=== PATIENT | male | born 1960 | race Hispanic/Latino ===

== ENCOUNTER 2019-12-09 21:53 | Inpatient (IN) | payer OTHER, SELFPAY ==
[~2019-12-09] VITALS: Ht 172.7 cm; Wt 77.1 kg
[2019-12-09] MEDS ORDERED: ONDANSETRON HCL 4 MG/2 ML VIAL ONE (22:09)
[2019-12-09 22:47] LABS: BASOPHILS % (AUTO) 0.3 % (0.0-5.0); HEMATOCRIT 49.2 % (42-54); LYMPHOCYTES % (AUTO) 11.3 % (21.0-51.0); MEAN CORPUSCULAR HEMOGLOBIN 30.3 pg (27.0-33.0); MEAN CORPUSCULAR HGB CONC 32.7 g/dL (32.0-36.0); MEAN CORPUSCULAR VOLUME 92.7 fL (79-99); MONOCYTES % (AUTO) 11.2 % (3.0-13.0); NEUTROPHILS % (AUTO) 76.2 % (40.0-77.0); PLATELET COUNT (AUTO) 313 K/uL (130-400); RED BLOOD CELL COUNT(AUTO) 5.31 MIL/uL (4.50-6.20); RED CELL DISTRIBUTION WIDTH 13.1 % (11.0-15.5); WHITE BLOOD COUNT (AUTO) 6.1 K/uL (4.8-10.8)
[2019-12-09 23:02] LABS: ALBUMIN 3.2 g/dL (3.5-5.0); BILIRUBIN,TOTAL 0.5 mg/dL (0.2-1.0); CREATININE 1.9 mg/dL (0.5-1.5); POTASSIUM 5.3 mmol/L (3.5-5.1); TOTAL PROTEIN, SERUM 8.4 g/dL (6.0-8.3)
[2019-12-10 00:05] LABS: ABG BASE EXCESS -19.8 mmol/L (-2.0-3.0); ABG HCO3 6.4 mmol/L (21.0-28.0); ABG PCO2 18 mmHg (35-48)
[2019-12-10] MEDS ORDERED: SODIUM CHLORIDE 0.9% 100 ML IV ONE (00:44)
[2019-12-10] MEDS ORDERED: INSULIN HUMULIN R 100 UNIT/ML 3ML ONE (00:44)
[2019-12-10 01:10] LABS: APPEARANCE,URINE Clear (CLEAR); BILIRUBIN,URINE Negative (NEGATIVE); COLOR,URINE Yellow (YELLOW); GLUCOSE, URINE (UA) >=1000 mg/dL (NEGATIVE); KETONES,URINE >=160 mg/dL (NEGATIVE); LEUKOCYTE ESTERASE ,URINE Negative (NEGATIVE); NITRATE,URINE Negative (NEGATIVE); OCCULT BLOOD,URINE Trace (NEGATIVE); PROTEIN,URINE POS 1+ mg/dL (NEGATIVE); UROBILINOGEN,URINE 0.2 mg/dL (0.2-1.0)
[2019-12-10 01:24] LABS: BACTERIA,URINE None Seen /HPF (None Seen); RBC,URINE None Seen /HPF (0-1); SQUAMOUS EPITHELIAL CELL,UR Rare /HPF (0-2); WBC,URINE None Seen /HPF (0-1); YEAST,URINE BUDDING None Seen /HPF (None Seen)
[2019-12-10] MEDS ORDERED: ONDANSETRON HCL 4 MG/2 ML VIAL IV PRN (02:00)
[2019-12-10] MEDS: SODIUM CHLORIDE 0.9% 1000ML 1,000 ML IV SCH (02:00)
[2019-12-10] MEDS ORDERED: DEXTROSE 5 %-0.45 % NACL 1,000 ML IV PRN (02:00)
[2019-12-10] MEDS ORDERED: SODIUM CHLORIDE 0.9% 1000ML 1,000 ML IV SCH (02:00)
[2019-12-10] MEDS ORDERED: HYDRALAZINE HCL 20 MG/ML VIAL IV PRN (02:00)
[2019-12-10] MEDS: DOXYCYCLINE 100MG+NS 250ML IV SCH (02:00)
[2019-12-10] MEDS ORDERED: ERGOCALCIFEROL (VITAMIN D2) 50,000 UNIT CAPSULE PO ONE (02:00)
[2019-12-10] MEDS ORDERED: POTASSIUM CHLORIDE 10MEQ/100ML 100 ML IV PRN (02:00)
[2019-12-10] MEDS ORDERED: INSULIN REGULAR, HUMAN 3ML 100 UNIT in SODIUM CHLORIDE 0.9% 99 ML IV PRN ×2 (02:00)
[2019-12-10] MEDS ORDERED: ALBUTEROL INHALER 90MCG/INH IH PRN (02:00)
[2019-12-10] MEDS ORDERED: ACETAMINOPHEN 325 MG TAB PO PRN (02:00)
[2019-12-10] MEDS ORDERED: SODIUM BICARB 50MEQ 50ML VIAL ONE (02:03)
[2019-12-10 03:21] LABS: ABG BASE EXCESS -15.1 mmol/L (-2.0-3.0); ABG HCO3 10.5 mmol/L (21.0-28.0); ABG OXYGEN SATURATION 95.6 % (95.0-99.0); ABG PCO2 25 mmHg (35-48)
[2019-12-10] MEDS ORDERED: DEXTROSE 5 %-0.45 % NACL 1,000 ML IV ONE ×2 (06:39→15:54)
[2019-12-10] MEDS ORDERED: ENOXAPARIN SODIUM 40 MG/0.4 ML SYRINGE SQ SCH ×2 (09:00)
[2019-12-10] MEDS: ZINC SULFATE 220 CAPSULE PO SCH (09:00)
[2019-12-10] MEDS: ASCORBIC ACID 500 MG TAB PO SCH (09:00)
[2019-12-10] MEDS ORDERED: DOXYCYCLINE 100MG+NS 250ML 250 ML IV ONE ×2 (11:21→21:53)
[2019-12-10] MEDS ORDERED: METHYLPREDNISOLONE SOD SUCC 40MG/ML 1ML ONE ×2 (11:21→19:40)
[2019-12-10] MEDS ORDERED: ASCORBIC ACID 500 MG TAB ONE (11:21)
[2019-12-10] MEDS ORDERED: ZINC SULFATE 220 CAPSULE ONE ×2 (11:22→11:50)
[2019-12-10] MEDS ORDERED: FAMOTIDINE/PF 20 MG/2 ML VIAL IV ONE ×2 (11:22→21:54)
[2019-12-10] MEDS ORDERED: ENOXAPARIN SODIUM 40 MG/0.4 ML SYRINGE SQ ONE (11:22)
[2019-12-10] MEDS ORDERED: ERGOCALCIFEROL (VITAMIN D2) 50,000 UNIT CAPSULE PO SCH (12:15)
[2019-12-10 16:01] LABS: ALBUMIN 2.4 g/dL (3.5-5.0); BILIRUBIN,TOTAL 0.3 mg/dL (0.2-1.0); CREATININE 1.2 mg/dL (0.5-1.5); POTASSIUM 3.5 mmol/L (3.5-5.1); TOTAL PROTEIN, SERUM 6.4 g/dL (6.0-8.3)
[2019-12-10 19:12] LABS: CRP QUANTITATIVE 50.3 mg/L (0.00-9.0)
[2019-12-10 21:01] LABS: BASOPHILS % (AUTO) 0.1 % (0.0-5.0); HEMATOCRIT 42.2 % (42-54); LYMPHOCYTES % (AUTO) 9.6 % (21.0-51.0); MEAN CORPUSCULAR HEMOGLOBIN 30.7 pg (27.0-33.0); MEAN CORPUSCULAR HGB CONC 34.6 g/dL (32.0-36.0); MEAN CORPUSCULAR VOLUME 88.8 fL (79-99); MONOCYTES % (AUTO) 5.5 % (3.0-13.0); NEUTROPHILS % (AUTO) 84.1 % (40.0-77.0); PLATELET COUNT (AUTO) 271 K/uL (130-400); RED BLOOD CELL COUNT(AUTO) 4.75 MIL/uL (4.50-6.20); RED CELL DISTRIBUTION WIDTH 13.1 % (11.0-15.5); WHITE BLOOD COUNT (AUTO) 6.9 K/uL (4.8-10.8)
[2019-12-11] MEDS ORDERED: METHYLPREDNISOLONE SOD SUCC 125MG/2ML VIAL ONE (02:52)
[2019-12-11 04:41] LABS: HEMOGLOBIN A1C 11.8 % (4.0-6.0)
[2019-12-11 04:46] LABS: CRP QUANTITATIVE 39.5 mg/L (0.00-9.0)
[2019-12-11] MEDS ORDERED: DOXYCYCLINE 100MG+NS 250ML 250 ML IV ONE (10:11)
[2019-12-11] MEDS ORDERED: ASCORBIC ACID 500 MG TAB ONE (10:12)
[2019-12-11] MEDS ORDERED: METHYLPREDNISOLONE SOD SUCC 40MG/ML 1ML ONE ×4 (10:12→20:46)
[2019-12-11] MEDS ORDERED: ZINC SULFATE 220 CAPSULE ONE (10:13)
[2019-12-11] MEDS ORDERED: FAMOTIDINE/PF 20 MG/2 ML VIAL IV ONE ×2 (10:13→20:46)
[2019-12-11] MEDS ORDERED: ENOXAPARIN SODIUM 40 MG/0.4 ML SYRINGE SQ ONE (10:13)
[2019-12-11 11:00] LABS: POTASSIUM 3.2 mmol/L (3.5-5.1)
[2019-12-11] MEDS ORDERED: POTASSIUM CHLORIDE 10MEQ/100ML 100 ML IV ONE ×3 (13:29→21:05)
[2019-12-11] MEDS ORDERED: ONDANSETRON HCL 4 MG/2 ML VIAL ONE (13:30)
--- NOTE | 2019-12-11 15:09 | NUR ---
PATIENT RESPONDED TO TEXT REQUEST FOR CALL BACK FOR DC PLANNING' SPOKE TO PATIENT ON THE PHONE, STATES LIVES ALONE, USED TO GO TO [facility] BUT 'THEY KICKED ME OUT' PATIENT STATES [facility] SAID HE IS 10% DISABLED, AND HE IS WORKING ON MEDICAID SECOND TO THAT. PATIENT STATES HE HAS NO DME, IS INDEPENDENT, DRIVES, LIVES ALONE, AND IS AT THIS TIME UNINSURED. 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 WILL NEED COMMUNITY RESOURCE PACKET Addendum: 12/11/19 at 1515 by ANGELIA WATSON RN Amended: Links added.
[2019-12-11 20:03] LABS: CREATININE 0.9 mg/dL (0.5-1.5)
[2019-12-11 20:12] LABS: POTASSIUM 2.9 mmol/L (3.5-5.1)
[2019-12-12] MEDS ORDERED: DOXYCYCLINE HYCLATE 100 MG TABLET PO ONE ×3 (02:12→17:26)
[2019-12-12 04:23] LABS: CRP QUANTITATIVE 20.2 mg/L (0.00-9.0)
[2019-12-12] MEDS ORDERED: METHYLPREDNISOLONE SOD SUCC 40MG/ML 1ML ONE ×2 (04:49→19:43)
[2019-12-12] MEDS ORDERED: INSULIN LISPRO 100 UNIT/ML 3ML SQ SCH (07:30)
[2019-12-12] MEDS: ASCORBIC ACID 500 MG TAB PO SCH (09:00)
[2019-12-12] MEDS: ZINC SULFATE 220 CAPSULE PO SCH (09:00)
[2019-12-12] MEDS ORDERED: ASCORBIC ACID 500 MG TAB ONE (10:14)
[2019-12-12] MEDS ORDERED: METHYLPREDNISOLONE SOD SUCC 125MG/2ML VIAL ONE (10:15)
[2019-12-12] MEDS ORDERED: ENOXAPARIN SODIUM 40 MG/0.4 ML SYRINGE SQ ONE ×2 (10:15→21:55)
[2019-12-12] MEDS ORDERED: ZINC SULFATE 220 CAPSULE ONE (10:15)
[2019-12-12] MEDS ORDERED: FAMOTIDINE/PF 20 MG/2 ML VIAL IV ONE ×2 (10:15→19:44)
[2019-12-12 10:18] LABS: CREATININE 0.8 mg/dL (0.5-1.5); POTASSIUM 3.5 mmol/L (3.5-5.1)
[2019-12-12] MEDS ORDERED: LIDOCAINE HCL-MPF 1% 2ML VIAL IV PRN (10:30)
[2019-12-12 10:40] LABS: ABG BASE EXCESS -7.4 mmol/L (-2.0-3.0); ABG HCO3 15.2 mmol/L (21.0-28.0); ABG PCO2 25 mmHg (35-48)
[2019-12-12] MEDS: DOXYCYCLINE 100MG+NS 250ML IV SCH (14:00)
[2019-12-12] MEDS: INSULIN LISPRO 100 UNIT/ML 3ML SQ SCH (18:24)
[2019-12-12] MEDS: SODIUM CHLORIDE 0.9% 1000ML 1,000 ML IV SCH (19:00)
[2019-12-12] MEDS: METHYLPREDNISOLONE SOD SUCC 40MG/ML 1ML IVP SCH (20:00)
[2019-12-12] MEDS: FAMOTIDINE/PF 20 MG/2 ML VIAL IV SCH (20:00)
[2019-12-12] MEDS: HUMALOG PO SS2 SQ SCH (21:00)
[2019-12-12] MEDS: INSULIN GLARGINE 100 UNITS/ML 10 ML VIAL SQ SCH (21:00)
[2019-12-12] MEDS: ENOXAPARIN SODIUM 40 MG/0.4 ML SYRINGE SQ SCH (21:00)
[2019-12-12] MEDS ORDERED: INSULIN GLARGINE 100 UNITS/ML 10 ML VIAL SQ SCH (21:00)
--- NOTE | 2019-12-13 00:01 | NUR ---
ADMISSION PT ADMITTED TO ROOM 228 A& 0X3 AMBULATED FROM STRETCHER TO BED WITH SBA. ORIENTED TO ROOM AND CALL DORANTES. 02 SAT 87-88% ON 3 L 02 VIA NC INCREASE TO 4 L NC NO CHANGE IN 02 SAT, INCREASE TO 5 L 02 SAT 92%. PT INSTRUCTED ON PRONING POSITION AND ENCOURAGE TO START PRONING AND VERBALIZED UNDERSTANDING. CALL DORANTES IN REACH.
[2019-12-13 00:05] VITALS: BP 116/71
[2019-12-13] MEDS ORDERED: METFORMIN PO (00:09)
[2019-12-13] MEDS ORDERED: GLIPIZIDE PO (00:10)
[2019-12-13] MEDS: DOXYCYCLINE 100MG+NS 250ML IV SCH (02:40)
[2019-12-13 03:51] VITALS: BP 95/53
[2019-12-13] MEDS: SODIUM CHLORIDE 0.9% 1000ML 1,000 ML IV SCH ×5 (05:30→21:02)
[2019-12-13 05:35] LABS: BASOPHILS % (AUTO) 0.1 % (0.0-5.0); HEMATOCRIT 37.9 % (42-54); LYMPHOCYTES % (AUTO) 4.4 % (21.0-51.0); MEAN CORPUSCULAR HEMOGLOBIN 30.2 pg (27.0-33.0); MEAN CORPUSCULAR HGB CONC 34.6 g/dL (32.0-36.0); MEAN CORPUSCULAR VOLUME 87.3 fL (79-99); MONOCYTES % (AUTO) 8.8 % (3.0-13.0); NEUTROPHILS % (AUTO) 86.2 % (40.0-77.0); PLATELET COUNT (AUTO) 247 K/uL (130-400); RED BLOOD CELL COUNT(AUTO) 4.34 MIL/uL (4.50-6.20); WHITE BLOOD COUNT (AUTO) 11.9 K/uL (4.8-10.8)
[2019-12-13 05:42] LABS: ALBUMIN 2.1 g/dL (3.5-5.0); BILIRUBIN,TOTAL 0.5 mg/dL (0.2-1.0); CREATININE 0.8 mg/dL (0.5-1.5); CRP QUANTITATIVE 28.9 mg/L (0.00-9.0); POTASSIUM 3.3 mmol/L (3.5-5.1); TOTAL PROTEIN, SERUM 5.6 g/dL (6.0-8.3)
[2019-12-13] MEDS: HUMALOG PO SS2 SQ SCH (06:02)
[2019-12-13] MEDS: POTASSIUM CHLORIDE 20MEQ/100ML 100 ML IV PRN ×2 (06:35→09:13)
[2019-12-13 07:00] VITALS: BP 107/67
[2019-12-13] MEDS: INSULIN LISPRO 100 UNIT/ML 3ML SQ SCH ×6 (08:00→20:55)
[2019-12-13] MEDS: METHYLPREDNISOLONE SOD SUCC 40MG/ML 1ML IVP SCH ×3 (08:11→21:04)
[2019-12-13] MEDS: FAMOTIDINE/PF 20 MG/2 ML VIAL IV SCH ×2 (08:11→21:04)
[2019-12-13] MEDS: ASCORBIC ACID 500 MG TAB PO SCH (08:11)
[2019-12-13] MEDS: ZINC SULFATE 220 CAPSULE PO SCH (08:11)
[2019-12-13] MEDS: ENOXAPARIN SODIUM 40 MG/0.4 ML SYRINGE SQ SCH ×2 (08:12→21:03)
[2019-12-13] MEDS: INSULIN GLARGINE 100 UNITS/ML 10 ML VIAL SQ SCH ×2 (08:14→20:56)
[2019-12-13 11:00] VITALS: BP 112/73
[2019-12-13] MEDS: DOXYCYCLINE 100MG+NS 250ML 250 ML IV SCH (14:00)
[2019-12-13 15:00] VITALS: BP 113/76
--- NOTE | 2019-12-13 19:55 | NUR ---
K+ CALL TO ONCALL PROVIDER CRIME SCENE ANALYST ISAIAS TO CLARIFY K+ ORDERS CURRENT K= 2.8 AFTER PT RECEIVED 40 MEQ IV TODAY, ORDER RECEIVED TO DC CURRENT K+ REPLACEMENTS AND INITIATE K+ HALF DOSE PROTOCOL AND MAGNESIUM PROTOCOL
[2019-12-13] MEDS ORDERED: MAGNESIUM 2GM PREMIX 50ML 50 ML IV PRN (20:00)
[2019-12-13] MEDS ORDERED: POTASSIUM CHLORIDE 10MEQ/100ML 100 ML IV PRN (20:00)
[2019-12-13] MEDS ORDERED: LIDOCAINE HCL-MPF 1% 2ML VIAL IV PRN (20:00)
[2019-12-13 20:31] VITALS: BP 109/75
[2019-12-13] MEDS: POTASSIUM CHLORIDE 10% ELIXIR 20 MEQ/15 ML UDCUP PO PRN ×2 (21:04→23:18)
[2019-12-14] VITALS (7 sets, daily range): BP systolic 107–118; BP diastolic 65–78
[2019-12-14] MEDS: SODIUM CHLORIDE 0.9% 1000ML 1,000 ML IV SCH ×2 (00:03→05:46)
[2019-12-14] MEDS: DOXYCYCLINE 100MG+NS 250ML 250 ML IV SCH ×2 (01:14→14:27)
[2019-12-14] MEDS: POTASSIUM CHLORIDE 10% ELIXIR 20 MEQ/15 ML UDCUP PO PRN ×2 (01:15→03:10)
[2019-12-14 05:34] LABS: BASOPHILS % (AUTO) 0.1 % (0.0-5.0); HEMATOCRIT 39.9 % (42-54); LYMPHOCYTES % (AUTO) 4.4 % (21.0-51.0); MEAN CORPUSCULAR HEMOGLOBIN 30.9 pg (27.0-33.0); MEAN CORPUSCULAR HGB CONC 35.3 g/dL (32.0-36.0); MEAN CORPUSCULAR VOLUME 87.3 fL (79-99); MONOCYTES % (AUTO) 7.5 % (3.0-13.0); NEUTROPHILS % (AUTO) 87.2 % (40.0-77.0); PLATELET COUNT (AUTO) 244 K/uL (130-400); RED BLOOD CELL COUNT(AUTO) 4.57 MIL/uL (4.50-6.20); WHITE BLOOD COUNT (AUTO) 16.5 K/uL (4.8-10.8)
[2019-12-14] MEDS: INSULIN LISPRO 100 UNIT/ML 3ML SQ SCH ×8 (05:46→20:48)
[2019-12-14 05:50] LABS: ALBUMIN 2.1 g/dL (3.5-5.0); BILIRUBIN,TOTAL 0.8 mg/dL (0.2-1.0); CREATININE 0.7 mg/dL (0.5-1.5); MAGNESIUM 2.1 mg/dL (1.80-2.40); POTASSIUM 3.1 mmol/L (3.5-5.1)
--- NOTE | 2019-12-14 06:16 | NUR ---
PM SHIFT NOTE PT A & 0X3 ON 5 L NC WITH HUMIDIFICATION 02 SATS 92-93%. PT ENCOURANGED TO PRONE POSITION WHILE IN BED BUT HAS DECLINED TO DO SO TONIGHT. RECEIVED PO REPLACEMENT FOR POTASSIUM PENDING IV 10 MEQ REPLACEMENT NOT STOCKED IN [facility]OSPITAL [facility] NOTIFIED AND WILL SUPPLY.
[2019-12-14] MEDS: INSULIN GLARGINE 100 UNITS/ML 10 ML VIAL SQ SCH ×3 (08:15→20:36)
[2019-12-14] MEDS: ENOXAPARIN SODIUM 40 MG/0.4 ML SYRINGE SQ SCH ×2 (09:14→20:37)
[2019-12-14] MEDS: METHYLPREDNISOLONE SOD SUCC 40MG/ML 1ML IVP SCH ×3 (09:14→20:36)
[2019-12-14] MEDS: FAMOTIDINE/PF 20 MG/2 ML VIAL IV SCH ×2 (09:15→20:36)
[2019-12-14] MEDS: ASCORBIC ACID 500 MG TAB PO SCH (09:15)
[2019-12-14] MEDS: ZINC SULFATE 220 CAPSULE PO SCH (10:19)
[2019-12-14] MEDS: POTASSIUM CHLORIDE 20 MEQ ERTAB PO PRN ×2 (13:03→14:26)
--- NOTE | 2019-12-14 14:23 | NUR ---
@1315, Family updated on patient status.
[2019-12-15] MEDS: DOXYCYCLINE 100MG+NS 250ML 250 ML IV SCH ×2 (02:35→13:47)
[2019-12-15 04:29] VITALS: BP 106/64
--- NOTE | 2019-12-15 05:12 | NUR ---
HR NOTIFIED BY POLY OPERATOR HR IN 40S, PT ASLEEP EASILY AWAKENED REPORTS HE WAS IN DEEP SLEEP DENIES ANY SYMPTOMS CHEST PAIN, SOB, DIZZINESS. HR BACK IN 50S ONCE AWAKENED.
[2019-12-15 05:22] LABS: BASOPHILS % (AUTO) 0.1 % (0.0-5.0); HEMATOCRIT 36.8 % (42-54); LYMPHOCYTES % (AUTO) 6.8 % (21.0-51.0); MEAN CORPUSCULAR HEMOGLOBIN 30.2 pg (27.0-33.0); MEAN CORPUSCULAR HGB CONC 34.5 g/dL (32.0-36.0); MEAN CORPUSCULAR VOLUME 87.6 fL (79-99); MONOCYTES % (AUTO) 10.5 % (3.0-13.0); NEUTROPHILS % (AUTO) 81.6 % (40.0-77.0); PLATELET COUNT (AUTO) 260 K/uL (130-400); RED CELL DISTRIBUTION WIDTH 13.3 % (11.0-15.5); WHITE BLOOD COUNT (AUTO) 12.1 K/uL (4.8-10.8)
[2019-12-15 05:57] LABS: ALBUMIN 1.8 g/dL (3.5-5.0); BILIRUBIN,TOTAL 0.6 mg/dL (0.2-1.0); CREATININE 0.7 mg/dL (0.5-1.5); POTASSIUM 3.4 mmol/L (3.5-5.1); TOTAL PROTEIN, SERUM 5.5 g/dL (6.0-8.3)
[2019-12-15] MEDS: INSULIN LISPRO 100 UNIT/ML 3ML SQ SCH ×7 (06:02→20:08)
[2019-12-15 08:48] VITALS: BP 107/60
[2019-12-15] MEDS: ASCORBIC ACID 500 MG TAB PO SCH (09:08)
[2019-12-15] MEDS: FAMOTIDINE/PF 20 MG/2 ML VIAL IV SCH ×2 (09:08→20:00)
[2019-12-15] MEDS: ZINC SULFATE 220 CAPSULE PO SCH (09:08)
[2019-12-15] MEDS: POTASSIUM CHLORIDE 20 MEQ ERTAB PO PRN ×2 (09:09→12:16)
[2019-12-15] MEDS: INSULIN GLARGINE 100 UNITS/ML 10 ML VIAL SQ SCH ×2 (09:11→20:08)
[2019-12-15] MEDS: ENOXAPARIN SODIUM 40 MG/0.4 ML SYRINGE SQ SCH ×2 (09:12→20:01)
[2019-12-15] MEDS: METHYLPREDNISOLONE SOD SUCC 40MG/ML 1ML IVP SCH ×3 (09:54→20:00)
--- NOTE | 2019-12-15 10:12 | NUR ---
I HAVE INFORMED HAND BUTTON SPLITTER ZELDA OF PT'S NEED TO BE REGISTERED TO RECEIVED PLASMA; I HAVE ALSO CHECKED AND PT DOES HAVE A RECENT TYPE AND CROSS.
[2019-12-15 11:40] VITALS: BP 112/62
--- NOTE | 2019-12-15 12:32 | NUR ---
@1215, Family updated on patient status.
--- NOTE | 2019-12-15 14:13 | NUR ---
received form from [facility] [employer] [facility] for convalescent plasma infusion and order placed to blood bank for the plasma; will await to her back from blood bank to infuse; pt has already signed consent to receive the plasma.
[2019-12-15 16:11] VITALS: BP 118/66
--- NOTE | 2019-12-15 18:30 | NUR ---
shift summary: pt's potassium level 3.4 this am- i have given him 2 10 meq kcl tablets as coverage per potassium protocol; pt has been voiding dark yellow urine per urinal, laking prone throughout most of the day and tolerating it well; he remains on o2 15 L via non rebreather face mask with o2 sat at 95%; pt has not received his 2 units of plasma, i have spoken to blood bank recently and they stated plasma not available yet for him but they will call when it is; dr mckeon did video assisted rounding on the patient today and dr johnson and dr andrews rounded on the patient.
[2019-12-15 20:00] VITALS: BP 119/65
--- NOTE | 2019-12-15 20:00 | NUR ---
MEDS SHIFT ASSESSMENT DONE, PLEASE REFER TO CHART. PIV TO LEFT HAND INFILTRATED, DISCONTINUED WITH CATHETER INTACT. DUE MEDS ADMINISTERED, TOLERATED WELL. KEPT PT ON NON-REBREATHER MASK. INSTRUCTED TO LIE PRONE MUCH POSSIBLE, PT VERBALIZES UNDERSTANDING. WILL MONITOR PT. CALL LIGHT WITHIN REACH. Addendum: 12/15/19 at 2124 by CARYN WAYNE RN RN Amended: Links added.
--- NOTE | 2019-12-15 22:00 | NUR ---
ROUNDS PT RESTING WELL, ASLEEP ON PRONE POSITION. KEPT RESTED AND COMFORTABLE. WILL MONITOR PT.
[2019-12-16] MEDS: DOXYCYCLINE 100MG+NS 250ML 250 ML IV SCH ×2 (01:37→14:15)
--- NOTE | 2019-12-16 01:51 | NUR ---
MEDS AWAKENED PT FOR DUE MEDS. NO CONCERNS VERBALIZED AT THIS TIME. IV ANTIBIOTIC HUNG. KEPT RESTED AND COMFORTABLE. WILL MONITOR PT.
[2019-12-16 04:00] VITALS: BP 123/86
[2019-12-16] MEDS: INSULIN LISPRO 100 UNIT/ML 3ML SQ SCH ×7 (06:00→21:27)
--- NOTE | 2019-12-16 06:02 | NUR ---
BLOOD SUGAR PT'S BLOOD SUGAR=71. VERBALIZES FEELING HUNGRY. PROVIDED PT WITH JUICE AND SANDWICH TO EAT. FOR MORE CARE.
[2019-12-16 06:13] LABS: HEMATOCRIT 40.7 % (42-54); MEAN CORPUSCULAR HEMOGLOBIN 30.4 pg (27.0-33.0); MEAN CORPUSCULAR HGB CONC 34.4 g/dL (32.0-36.0); MEAN CORPUSCULAR VOLUME 88.5 fL (79-99); PLATELET COUNT (AUTO) 338 K/uL (130-400); RED CELL DISTRIBUTION WIDTH 13.2 % (11.0-15.5); WHITE BLOOD COUNT (AUTO) 14.2 K/uL (4.8-10.8)
[2019-12-16 06:25] LABS: CREATININE 0.6 mg/dL (0.5-1.5); MAGNESIUM 2.1 mg/dL (1.80-2.40); POTASSIUM 3.2 mmol/L (3.5-5.1)
[2019-12-16 06:35] LABS: BAND NEUTROPHILS % (MANUAL) 3 % (0-2); LYMPHOCYTES % (MANUAL) 10 % (22-44); MAN.DIFF COMMENT-IMPRESSION MANUAL DIFFERENTIAL; MONOCYTES % (MANUAL) 10 % (2-9); PLATELET MORPHOLOGY COMMENT ADEQUATE; SEGMENTED NEUTROPHILS % 77 % (40-70)
[2019-12-16 08:30] VITALS: BP 131/77
[2019-12-16] MEDS: METHYLPREDNISOLONE SOD SUCC 40MG/ML 1ML IVP SCH ×3 (08:41→21:34)
[2019-12-16] MEDS: ENOXAPARIN SODIUM 40 MG/0.4 ML SYRINGE SQ SCH ×2 (08:41→21:35)
[2019-12-16] MEDS: FAMOTIDINE/PF 20 MG/2 ML VIAL IV SCH ×2 (08:42→21:34)
[2019-12-16] MEDS: ASCORBIC ACID 500 MG TAB PO SCH (08:42)
[2019-12-16] MEDS: ZINC SULFATE 220 CAPSULE PO SCH (08:42)
[2019-12-16] MEDS ORDERED: INSULIN GLARGINE 100 UNITS/ML 10 ML VIAL SQ SCH (09:00)
[2019-12-16] MEDS: LACTULOSE 20 GM/30 ML UDCUP PO PRN (11:49)
[2019-12-16 12:00] VITALS: BP 106/62
[2019-12-16] MEDS: POTASSIUM CHLORIDE 20 MEQ ERTAB PO PRN ×3 (12:00→16:32)
[2019-12-16] MEDS: INSULIN GLARGINE 100 UNITS/ML 10 ML VIAL SQ SCH ×2 (12:20→21:26)
--- NOTE | 2019-12-16 13:32 | NUR ---
RDSCREEN - LOS X 7 Pt positive for COVID-19 infection. Pt with 75gm CC Diet order in place with improved appetite, Intake at 100%, No report of GI distress. WBC 14.2, Vitamin C, Zinc supplementation in place. Alb 1.8. Pending plasma Tx as per EMR. Recommend 500mg Vit C BID Recommend 60mL ProMod BID RD to continue to monitor. Please notify as additional nutrition concerns arise. Thank you.
--- NOTE | 2019-12-16 13:32 | NUR ---
I CALLED BLOOD BANK IN [facility] TO THE ORDERED PLASMA AND WAS TOLD IT MIGHT BE READY BY THIS AFTERNOON. THEY WILL CALL WHEN AVAILABLE.
[2019-12-16 15:30] VITALS: BP 118/68
--- NOTE | 2019-12-16 17:42 | NUR ---
SHIFT SUMMARY: PT WITH NOT ABLE TO WEAN DOWN FROM OXYGEN, HE IS STILL ON NON REBREATHER MASK AT 15L, WHEN MASK REMOVED FOR EATING OR REPOSITIONING PT QUICKLY DROPS INTO THE 70'S O2 SAT; I SPOKE TO RESPIRATORY AND THERE CLOSELY MONITORING HIM; THEY HAVE PLACED A CONTINUOUS PULSE OX ON THE PATIENT TO ASSIST IN MONITORING HIS LEVELS; PT HAD A LOW POTASSIUM OF 3.2 TODAY, 1 HAVE GIVEN HIM A TOTAL OF 30 MEQ KCL PO PER POTASSIUM PROTOCOL; DR FRIEDMAN, DR GARDNER AND DR GRIFFITHS ROUNDED ON PATIENT TODAY; DR MCLAUGHLIN DID VIDEO CONFERENCE ROUNDING; PT CONTINUES TO BE PENDING RECEIVING THE PLASMA, NO CALL FROM BLOOD BANK YET THIS AFTERNOON; I GAVE PT LACTULOSE TODAY AND HE DID HAVE A BOWEL MOVEMENT ON THE BEDSIDE COMMODE, HE DID NOT HAVE ENOUGH STRENGTH TO WALK TO BATHROOM.
[2019-12-16 19:45] VITALS: BP 105/65
[2019-12-16] MEDS ORDERED: REMDESIVIR (EUA) 520 100 MG VIAL IV ONE (20:00)
[2019-12-16] MEDS ORDERED: REMDESIVIR (EUA) 520 200 MG in SODIUM CHLORIDE 0.9% 250 ML IV ONE (20:00)
[2019-12-16 23:22] VITALS: BP 135/88
[2019-12-17] MEDS ORDERED: SODIUM CHLORIDE 0.9% 250 ML IV ONE (00:57)
[2019-12-17] MEDS: DOXYCYCLINE 100MG+NS 250ML 250 ML IV SCH (02:01)
--- NOTE | 2019-12-17 02:35 | NUR ---
Patient started on 1 of 2 units of convalescent plasma. No acute distress or adverse reaction noted. Will continue to monitor.
[2019-12-17 03:27] VITALS: BP 112/66
--- NOTE | 2019-12-17 05:10 | NUR ---
Convalescent Plasma-completed first of 2 units of plasma, v/s stable, no adverse reaction. As per lab, now only one unit of plasma will be given despite order for 2 units.
[2019-12-17 05:39] LABS: BASOPHILS % (AUTO) 0.1 % (0.0-5.0); LYMPHOCYTES % (AUTO) 5.1 % (21.0-51.0); MEAN CORPUSCULAR HEMOGLOBIN 30.7 pg (27.0-33.0); MEAN CORPUSCULAR HGB CONC 34.2 g/dL (32.0-36.0); MEAN CORPUSCULAR VOLUME 89.8 fL (79-99); NEUTROPHILS % (AUTO) 82.8 % (40.0-77.0); PLATELET COUNT (AUTO) 352 K/uL (130-400); RED BLOOD CELL COUNT(AUTO) 4.23 MIL/uL (4.50-6.20); RED CELL DISTRIBUTION WIDTH 13.1 % (11.0-15.5)
[2019-12-17 06:06] LABS: CREATININE 0.6 mg/dL (0.5-1.5); POTASSIUM 3.4 mmol/L (3.5-5.1)
[2019-12-17 06:10] LABS: MAGNESIUM 2.1 mg/dL (1.80-2.40); PHOSPHORUS 3.5 mg/dL (2.5-4.9)
[2019-12-17] MEDS: INSULIN LISPRO 100 UNIT/ML 3ML SQ SCH ×7 (06:43→21:00)
[2019-12-17] MEDS: POTASSIUM CHLORIDE 20 MEQ ERTAB PO PRN (07:04)
[2019-12-17 08:00] VITALS: BP 122/76
[2019-12-17] MEDS: FAMOTIDINE/PF 20 MG/2 ML VIAL IV SCH ×2 (09:56→20:15)
[2019-12-17] MEDS: ASCORBIC ACID 500 MG TAB PO SCH (09:57)
[2019-12-17] MEDS: ZINC SULFATE 220 CAPSULE PO SCH (09:57)
[2019-12-17] MEDS: METHYLPREDNISOLONE SOD SUCC 40MG/ML 1ML IVP SCH ×3 (09:57→20:15)
[2019-12-17] MEDS: ENOXAPARIN SODIUM 40 MG/0.4 ML SYRINGE SQ SCH ×2 (09:58→20:16)
[2019-12-17 11:00] VITALS: BP 94/57
[2019-12-17] MEDS ORDERED: COMPOUND IV REFRIGERATED 1 EACH IVSOLN MISC PRN (11:45)
[2019-12-17] MEDS: DOXYCYCLINE HYCLATE 100 MG TABLET PO SCH ×2 (12:33→20:15)
[2019-12-17 15:00] VITALS: BP 101/64
[2019-12-17] MEDS ORDERED: LIDOCAINE HCL-MPF 1% 2ML VIAL IV PRN (17:45)
[2019-12-17] MEDS ORDERED: POTASSIUM CHLORIDE 20 MEQ ERTAB PO PRN (17:45)
[2019-12-17] MEDS ORDERED: POTASSIUM CHLORIDE 10% ELIXIR 20 MEQ/15 ML UDCUP PO PRN (17:45)
[2019-12-17] MEDS ORDERED: POTASSIUM CHLORIDE 20MEQ/100ML 100 ML IV PRN (17:45)
[2019-12-17 19:05] VITALS: BP 97/64
[2019-12-17] MEDS ORDERED: REMDESIVIR (EUA) 520 100 MG VIAL IV ONE (20:00)
[2019-12-17] MEDS: REMDESIVIR (EUA) 520 100 MG in SODIUM CHLORIDE 0.9% 250 ML IV SCH (20:14)
[2019-12-17] MEDS: INSULIN GLARGINE 100 UNITS/ML 10 ML VIAL SQ ONE ×2 (21:36→21:47)
[2019-12-17] MEDS: PHARMACY COMMUNICATION MISC SCH (21:36)
[2019-12-17 23:03] VITALS: BP 111/78
[2019-12-18 03:42] VITALS: BP 120/69
[2019-12-18] MEDS: PHARMACY COMMUNICATION MISC SCH ×3 (04:33→20:46)
[2019-12-18 05:26] LABS: BASOPHILS % (AUTO) 0.2 % (0.0-5.0); HEMATOCRIT 41.6 % (42-54); LYMPHOCYTES % (AUTO) 5.1 % (21.0-51.0); MEAN CORPUSCULAR HEMOGLOBIN 30.7 pg (27.0-33.0); MEAN CORPUSCULAR HGB CONC 34.1 g/dL (32.0-36.0); MEAN CORPUSCULAR VOLUME 89.8 fL (79-99); MONOCYTES % (AUTO) 8.1 % (3.0-13.0); NEUTROPHILS % (AUTO) 85.5 % (40.0-77.0); PLATELET COUNT (AUTO) 374 K/uL (130-400); RED BLOOD CELL COUNT(AUTO) 4.63 MIL/uL (4.50-6.20); RED CELL DISTRIBUTION WIDTH 13.3 % (11.0-15.5); WHITE BLOOD COUNT (AUTO) 9.3 K/uL (4.8-10.8)
[2019-12-18] MEDS: INSULIN LISPRO 100 UNIT/ML 3ML SQ SCH ×7 (05:53→20:56)
[2019-12-18 05:57] LABS: ALBUMIN 1.8 g/dL (3.5-5.0); BILIRUBIN,DIRECT 0.1 mg/dL (0.0-0.3); BILIRUBIN,TOTAL 0.7 mg/dL (0.2-1.0); CREATININE 0.7 mg/dL (0.5-1.5); CRP QUANTITATIVE 99.2 mg/L (0.00-9.0); MAGNESIUM 2.6 mg/dL (1.80-2.40); POTASSIUM 4.1 mmol/L (3.5-5.1); TOTAL PROTEIN, SERUM 5.9 g/dL (6.0-8.3)
[2019-12-18 08:00] VITALS: BP 108/78
[2019-12-18] MEDS: FAMOTIDINE/PF 20 MG/2 ML VIAL IV SCH ×2 (10:07→20:21)
[2019-12-18] MEDS: ENOXAPARIN SODIUM 40 MG/0.4 ML SYRINGE SQ SCH ×2 (10:08→20:21)
[2019-12-18] MEDS: ZINC SULFATE 220 CAPSULE PO SCH (10:09)
[2019-12-18] MEDS: ASCORBIC ACID 500 MG TAB PO SCH (10:09)
[2019-12-18] MEDS: DOXYCYCLINE HYCLATE 100 MG TABLET PO SCH ×2 (10:09→20:20)
[2019-12-18] MEDS: METHYLPREDNISOLONE SOD SUCC 40MG/ML 1ML IVP SCH ×3 (10:11→20:20)
[2019-12-18 11:00] VITALS: BP 110/74
[2019-12-18 16:00] VITALS: BP 104/65
[2019-12-18] MEDS ORDERED: REMDESIVIR (EUA) 520 100 MG VIAL IV ONE (20:00)
[2019-12-18] MEDS: REMDESIVIR (EUA) 520 100 MG in SODIUM CHLORIDE 0.9% 250 ML IV SCH (20:18)
[2019-12-18 20:45] VITALS: BP 103/59
[2019-12-18 23:56] VITALS: BP 106/74
[2019-12-19 03:51] VITALS: BP 120/78
[2019-12-19] MEDS: PHARMACY COMMUNICATION MISC SCH ×3 (04:42→19:43)
[2019-12-19 05:53] LABS: BASOPHILS % (AUTO) 0.1 % (0.0-5.0); HEMATOCRIT 42.5 % (42-54); LYMPHOCYTES % (AUTO) 5.5 % (21.0-51.0); MEAN CORPUSCULAR HEMOGLOBIN 30.6 pg (27.0-33.0); MEAN CORPUSCULAR HGB CONC 33.9 g/dL (32.0-36.0); MEAN CORPUSCULAR VOLUME 90.4 fL (79-99); NEUTROPHILS % (AUTO) 86.4 % (40.0-77.0); PLATELET COUNT (AUTO) 358 K/uL (130-400); RED CELL DISTRIBUTION WIDTH 13.2 % (11.0-15.5); WHITE BLOOD COUNT (AUTO) 8.6 K/uL (4.8-10.8)
[2019-12-19 06:23] LABS: CREATININE 0.8 mg/dL (0.5-1.5); CRP QUANTITATIVE 134.1 mg/L (0.00-9.0); POTASSIUM 4.4 mmol/L (3.5-5.1)
[2019-12-19] MEDS: INSULIN LISPRO 100 UNIT/ML 3ML SQ SCH ×7 (06:32→20:51)
[2019-12-19 08:00] VITALS: BP 117/82
--- NOTE | 2019-12-19 08:27 | NUR ---
reported to dr. mckeon the d dimer of 1021. no orders was given.
[2019-12-19] MEDS: DOXYCYCLINE HYCLATE 100 MG TABLET PO SCH ×2 (09:20→19:29)
[2019-12-19] MEDS: ZINC SULFATE 220 CAPSULE PO SCH (09:20)
[2019-12-19] MEDS: FAMOTIDINE/PF 20 MG/2 ML VIAL IV SCH ×2 (09:20→19:29)
[2019-12-19] MEDS: METHYLPREDNISOLONE SOD SUCC 40MG/ML 1ML IVP SCH ×3 (09:20→20:52)
[2019-12-19] MEDS: ASCORBIC ACID 500 MG TAB PO SCH (09:20)
[2019-12-19] MEDS: ENOXAPARIN SODIUM 40 MG/0.4 ML SYRINGE SQ SCH ×2 (09:21→19:43)
[2019-12-19] MEDS ORDERED: INSULIN GLARGINE 100 UNITS/ML 10 ML VIAL SQ ONE (10:00)
[2019-12-19] MEDS ORDERED: INSULIN GLARGINE 100 UNITS/ML 10 ML VIAL SQ SCH (10:00)
[2019-12-19 11:00] VITALS: BP 117/82
[2019-12-19 16:00] VITALS: BP 95/66
[2019-12-19] MEDS: REMDESIVIR (EUA) 520 100 MG in SODIUM CHLORIDE 0.9% 250 ML IV SCH (19:27)
[2019-12-19] MEDS ORDERED: REMDESIVIR (EUA) 520 100 MG VIAL IV ONE (20:00)
[2019-12-19 20:49] VITALS: BP 115/68
[2019-12-20 00:41] VITALS: BP 108/71
[2019-12-20 04:23] VITALS: BP 111/75
[2019-12-20] MEDS: PHARMACY COMMUNICATION MISC SCH ×3 (04:56→21:05)
[2019-12-20] MEDS: INSULIN LISPRO 100 UNIT/ML 3ML SQ SCH ×7 (05:51→21:00)
[2019-12-20 07:03] LABS: BASOPHILS % (AUTO) 0.1 % (0.0-5.0); HEMATOCRIT 41.7 % (42-54); LYMPHOCYTES % (AUTO) 3.4 % (21.0-51.0); MEAN CORPUSCULAR HEMOGLOBIN 30.6 pg (27.0-33.0); MEAN CORPUSCULAR HGB CONC 34.1 g/dL (32.0-36.0); MEAN CORPUSCULAR VOLUME 89.9 fL (79-99); MONOCYTES % (AUTO) 7.9 % (3.0-13.0); NEUTROPHILS % (AUTO) 87.9 % (40.0-77.0); PLATELET COUNT (AUTO) 290 K/uL (130-400); RED BLOOD CELL COUNT(AUTO) 4.64 MIL/uL (4.50-6.20); RED CELL DISTRIBUTION WIDTH 13.2 % (11.0-15.5); WHITE BLOOD COUNT (AUTO) 12.5 K/uL (4.8-10.8)
[2019-12-20 07:27] LABS: CARBON DIOXIDE 29 mmol/L (21-32); CHLORIDE 103 mmol/L (101-111); CREATININE 0.8 mg/dL (0.5-1.5); GLOMERULAR FILTR. RATE CALC 106 mL/min (>60); GLUCOSE,RANDOM 177 mg/dL (70-105); LACTATE DEHYDROGENASE 539 U/L (81-234); POTASSIUM 3.9 mmol/L (3.5-5.1); SODIUM SERUM 137 mmol/L (136-145); UREA NITROGEN, BLOOD 17 mg/dL (7-18)
[2019-12-20 08:00] VITALS: BP 103/62
[2019-12-20] MEDS ORDERED: INSULIN GLARGINE 100 UNITS/ML 10 ML VIAL SQ SCH (09:00)
[2019-12-20] MEDS: METHYLPREDNISOLONE SOD SUCC 40MG/ML 1ML IVP SCH ×3 (09:27→21:10)
[2019-12-20] MEDS: DOXYCYCLINE HYCLATE 100 MG TABLET PO SCH ×2 (09:28→19:47)
[2019-12-20] MEDS: ZINC SULFATE 220 CAPSULE PO SCH (09:28)
[2019-12-20] MEDS: FAMOTIDINE/PF 20 MG/2 ML VIAL IV SCH ×2 (09:28→19:47)
[2019-12-20] MEDS: ASCORBIC ACID 500 MG TAB PO SCH (09:28)
[2019-12-20] MEDS: ENOXAPARIN SODIUM 40 MG/0.4 ML SYRINGE SQ SCH ×2 (09:31→19:48)
[2019-12-20 11:00] VITALS: BP 100/73
[2019-12-20 16:00] VITALS: BP 97/63
[2019-12-20] MEDS: REMDESIVIR (EUA) 520 100 MG in SODIUM CHLORIDE 0.9% 250 ML IV SCH (19:47)
[2019-12-20] MEDS ORDERED: REMDESIVIR (EUA) 520 100 MG VIAL IV ONE (20:00)
[2019-12-20 20:24] VITALS: BP 113/78
[2019-12-21] VITALS (7 sets, daily range): BP systolic 93–115; BP diastolic 61–80
[2019-12-21] MEDS: PHARMACY COMMUNICATION MISC SCH (04:30)
[2019-12-21 05:23] LABS: BASOPHILS % (AUTO) 0.1 % (0.0-5.0); HEMATOCRIT 43.6 % (42-54); LYMPHOCYTES % (AUTO) 2.9 % (21.0-51.0); MEAN CORPUSCULAR HEMOGLOBIN 30.6 pg (27.0-33.0); MEAN CORPUSCULAR HGB CONC 33.9 g/dL (32.0-36.0); MEAN CORPUSCULAR VOLUME 90.1 fL (79-99); NEUTROPHILS % (AUTO) 90.3 % (40.0-77.0); PLATELET COUNT (AUTO) 240 K/uL (130-400); RED BLOOD CELL COUNT(AUTO) 4.84 MIL/uL (4.50-6.20); RED CELL DISTRIBUTION WIDTH 13.2 % (11.0-15.5); WHITE BLOOD COUNT (AUTO) 13.5 K/uL (4.8-10.8)
[2019-12-21 06:02] LABS: CREATININE 0.8 mg/dL (0.5-1.5); CRP QUANTITATIVE 50.6 mg/L (0.00-9.0); POTASSIUM 4.2 mmol/L (3.5-5.1)
[2019-12-21] MEDS: INSULIN LISPRO 100 UNIT/ML 3ML SQ SCH ×7 (06:21→21:00)
[2019-12-21 06:27] LABS: B-TYPE NATRIURETIC PEPTIDE 31 pg/mL (0-100)
[2019-12-21] MEDS: FAMOTIDINE/PF 20 MG/2 ML VIAL IV SCH ×2 (08:08→21:21)
[2019-12-21] MEDS: ASCORBIC ACID 500 MG TAB PO SCH (08:08)
[2019-12-21] MEDS: ZINC SULFATE 220 CAPSULE PO SCH (08:08)
[2019-12-21] MEDS: DOXYCYCLINE HYCLATE 100 MG TABLET PO SCH ×2 (08:08→21:21)
[2019-12-21] MEDS: METHYLPREDNISOLONE SOD SUCC 40MG/ML 1ML IVP SCH ×3 (08:09→21:21)
[2019-12-21] MEDS: ENOXAPARIN SODIUM 40 MG/0.4 ML SYRINGE SQ SCH ×2 (08:11→21:20)
[2019-12-21] MEDS ORDERED: INSULIN GLARGINE 100 UNITS/ML 10 ML VIAL SQ SCH (09:00)
--- NOTE | 2019-12-21 17:45 | NUR ---
RESTING IN BED IN RIGHT SIDE-LYING POSITION AFTER DINNER. O2 SAT PER CONTINUOUS PULSE OXIMETER-88%. NC AND NRB IN PLACE. CALL LIGHT WITHIN REACH. BLINDS OPEN.
[2019-12-22] VITALS (29 sets, daily range): BP systolic 70–135; BP diastolic 40–100
[2019-12-22] MEDS: METHYLPREDNISOLONE SOD SUCC 40MG/ML 1ML IVP SCH ×2 (05:25→21:17)
[2019-12-22] MEDS: INSULIN LISPRO 100 UNIT/ML 3ML SQ SCH ×2 (05:26→08:00)
--- NOTE | 2019-12-22 05:49 | NUR ---
NO ANSWERED FROM . DECORATOR INSPECTOR ACCORDING TO THE SCHEDULE BOOK DR. IVORY NOR DR. FRANCISCO PIEDRA PAGED, HE STATED TO INTUBATE PATIENT IF NEEDED. CHARGE NURSE AWARE , STATED TO DO ABG PER PROTOCCOL
[2019-12-22 05:56] LABS: BASOPHILS % (AUTO) 0.1 % (0.0-5.0); HEMATOCRIT 45.6 % (42-54); LYMPHOCYTES % (AUTO) 3.1 % (21.0-51.0); MEAN CORPUSCULAR HEMOGLOBIN 30.5 pg (27.0-33.0); MEAN CORPUSCULAR HGB CONC 33.6 g/dL (32.0-36.0); MEAN CORPUSCULAR VOLUME 90.8 fL (79-99); MONOCYTES % (AUTO) 6.1 % (3.0-13.0); PLATELET COUNT (AUTO) 207 K/uL (130-400); RED BLOOD CELL COUNT(AUTO) 5.02 MIL/uL (4.50-6.20); RED CELL DISTRIBUTION WIDTH 13.3 % (11.0-15.5); WHITE BLOOD COUNT (AUTO) 17.1 K/uL (4.8-10.8)
[2019-12-22 06:18] LABS: CREATININE 0.8 mg/dL (0.5-1.5); CRP QUANTITATIVE 41.7 mg/L (0.00-9.0); POTASSIUM 4.6 mmol/L (3.5-5.1)
--- NOTE | 2019-12-22 06:23 | NUR ---
ABG'S REPORTED TO CHARGE NURSE, NO ANSWERED . PATIENT SATING IN THE LOW 70'S , - 82% PATIENT STATES HE CANNOT BREATH PATIENT STATES HE IS SHORT OF BREATH PATIENT ASKED IF HE WERE TO NEED A VENTILATOR AND HAVE A TUBE "DOWN THIS THROAT " TO HELP HIM BREATH IF HE WOULD WANT THAT, PATIENT STATES "YES" PATIENT VERBALIZES HE WANTS TO BE A FULL CODE. PATIENT CONTINUES TO TRY TO BREATH, RT AT BED SIDE, PATIENT ALREADY ON A NON REBREATHER MASK, WITH NASAL CANULA AT 15 LITERS PER RT, WE DO NOT LONGER HAVE BIPAP NOR HIGH FLOWS PATIENT CONTINUES WIT SOB CALLED , AGAIN CARE ASST, SANIYA NO ANSWERED, CALLED DR. SINGH NO ANSWERED CALLED DR. PIEDRA HE STATED , HE WAS NOT CARE ASST AND THAT HE NEEDED TO SLEEP, TO CALL SOMEONE ELSE, HOWEVER ABG'S REPORTED TO DR. PIEDRA , HE STATED TO INTUBATE PATIENT, TO CALL ER AND TO INTUBATE PATIENT , THAT HE IS HYPOXIC CALLED ER , NO ANSWERED, CALLED HOUSE [facility] , LINE BUSY CALLED ER AGAIN, NO ANSWERED CALLED [facility] AGAIN, AYAN SUPPERVISOR MADE AWARE OF PT'S SITUATION AND ORDER TO INTUBATE GAVE ME A DIFFERENT EXTENSION, GOT THROUGH DR Lucie LUCERO AWARE OF PT'S STATUS AND ABG'S RESULTS RT AWARE
[2019-12-22 06:25] LABS: ABG HCO3 23.7 mmol/L (21.0-28.0); ABG OXYGEN SATURATION 71.1 % (95.0-99.0); ABG PCO2 33 mmHg (35-48)
--- NOTE | 2019-12-22 06:57 | NUR ---
PT INTUBATED BP 131/90 HR 135 O2 85%
--- NOTE | 2019-12-22 07:10 | NUR ---
DR. DOROTHEA HARO GOT ORDERS TO TRANSFERED PATIENT TO ICU REPEAT ABG'S AND PRONE PATIENT
[2019-12-22] MEDS ORDERED: FENTANYL CITRATE PF 0.05 MG/ML 1,000 MCG in SODIUM CHLORIDE 0.9% 100 ML IVPB SCH (08:30)
[2019-12-22] MEDS ORDERED: FENTANYL 2500MCG+NS 250ML 250 ML IV ONE (08:36)
[2019-12-22] MEDS: ENOXAPARIN SODIUM 40 MG/0.4 ML SYRINGE SQ SCH ×2 (09:00→21:18)
[2019-12-22] MEDS: MIDAZOLAM 50MG-0.9% NS 50ML 50 ML BAG IV SCH ×2 (09:06→15:01)
[2019-12-22] MEDS: FENTANYL 2500MCG+NS 250ML 250 ML IV PRN (09:06)
[2019-12-22] MEDS: ASCORBIC ACID 500 MG TAB PO SCH (10:27)
[2019-12-22] MEDS: DOXYCYCLINE HYCLATE 100 MG TABLET PO SCH ×2 (10:27→21:17)
[2019-12-22] MEDS: FAMOTIDINE/PF 20 MG/2 ML VIAL IV SCH ×2 (10:27→21:17)
[2019-12-22] MEDS: ZINC SULFATE 220 CAPSULE PO SCH (10:27)
[2019-12-22] MEDS ORDERED: LACTULOSE 20 GM/30 ML UDCUP PO PRN (11:15)
[2019-12-22] MEDS ORDERED: VANCOMYCIN PROTOCOL PER PHARMACY IV SCH (11:15)
[2019-12-22] MEDS ORDERED: METHYLPREDNISOLONE SOD SUCC 125MG/2ML VIAL IVP SCH (11:15)
[2019-12-22] MEDS ORDERED: NOREPINEPHRINE 4MG/NS 250ML 250 ML IV ONE (11:17)
[2019-12-22] MEDS ORDERED: COMPOUND IV REFRIGERATED 1 EACH IVSOLN MISC PRN (11:45)
[2019-12-22 11:54] LABS: ABG BASE EXCESS -1.5 mmol/L (-2.0-3.0); ABG HCO3 23.3 mmol/L (21.0-28.0); ABG OXYGEN SATURATION 88.6 % (95.0-99.0); ABG PCO2 40 mmHg (35-48)
[2019-12-22 12:09] LABS: BASOPHILS % (AUTO) 0.1 % (0.0-5.0); HEMATOCRIT 41.6 % (42-54); LYMPHOCYTES % (AUTO) 2.4 % (21.0-51.0); MEAN CORPUSCULAR HEMOGLOBIN 30.5 pg (27.0-33.0); MEAN CORPUSCULAR HGB CONC 33.2 g/dL (32.0-36.0); MONOCYTES % (AUTO) 4.7 % (3.0-13.0); NEUTROPHILS % (AUTO) 91.9 % (40.0-77.0); PLATELET COUNT (AUTO) 176 K/uL (130-400); RED BLOOD CELL COUNT(AUTO) 4.52 MIL/uL (4.50-6.20); RED CELL DISTRIBUTION WIDTH 13.7 % (11.0-15.5); WHITE BLOOD COUNT (AUTO) 22.3 K/uL (4.8-10.8)
[2019-12-22 12:32] LABS: CREATININE 0.8 mg/dL (0.5-1.5); POTASSIUM 4.6 mmol/L (3.5-5.1)
[2019-12-22 12:38] LABS: ALBUMIN 1.6 g/dL (3.5-5.0); BILIRUBIN,TOTAL 0.8 mg/dL (0.2-1.0); TOTAL PROTEIN, SERUM 5.3 g/dL (6.0-8.3)
[2019-12-22] MEDS ORDERED: SODIUM CHLORIDE 0.9% 500ML 500 ML IV ONE (12:43)
[2019-12-22] MEDS ORDERED: ROCURONIUM 10MG/1ML SYR 10 MG/ML ML ONE (12:47)
[2019-12-22] MEDS: MEROPENEM 1 GM VIAL IVP SCH ×2 (13:07→19:15)
[2019-12-22] MEDS: VANCOMYCIN 1.25 GM in SODIUM CHLORIDE 0.9% 250 ML IV SCH ×2 (13:11→21:00)
[2019-12-22] MEDS: INSULIN REGULAR, HUMAN 3ML 100 UNIT in SODIUM CHLORIDE 0.9% 99 ML IV SCH ×2 (13:14)
[2019-12-22] MEDS: NOREPINEPHRINE 4MG/NS 250ML 250 ML IV SCH (18:46)
[2019-12-22] MEDS ORDERED: SODIUM CHLORIDE 0.9% 1000ML 1,000 ML IV ONE (20:09)
[2019-12-22] MEDS: DOCUSATE NA 100MG/10ML UDCUP PO SCH (21:17)
[2019-12-23] VITALS (82 sets, daily range): BP systolic 73–139; BP diastolic 42–97
[2019-12-23] MEDS: MEROPENEM 1 GM VIAL IVP SCH ×3 (02:00→18:29)
[2019-12-23] MEDS: NOREPINEPHRINE 4MG/NS 250ML 250 ML IV SCH ×2 (06:29→14:32)
[2019-12-23] MEDS: FENTANYL 2500MCG+NS 250ML 250 ML IV PRN (06:30)
[2019-12-23 07:33] LABS: HEMATOCRIT 42.3 % (42-54); MEAN CORPUSCULAR HEMOGLOBIN 29.9 pg (27.0-33.0); MEAN CORPUSCULAR HGB CONC 32.4 g/dL (32.0-36.0); MEAN CORPUSCULAR VOLUME 92.4 fL (79-99); PLATELET COUNT (AUTO) 156 K/uL (130-400); RED BLOOD CELL COUNT(AUTO) 4.58 MIL/uL (4.50-6.20); RED CELL DISTRIBUTION WIDTH 13.3 % (11.0-15.5)
[2019-12-23 07:53] LABS: ALBUMIN 1.5 g/dL (3.5-5.0); BILIRUBIN,TOTAL 0.6 mg/dL (0.2-1.0); CREATININE 0.7 mg/dL (0.5-1.5); CRP QUANTITATIVE 43.7 mg/L (0.00-9.0); PHOSPHORUS 3.3 mg/dL (2.5-4.9); POTASSIUM 4.2 mmol/L (3.5-5.1); TOTAL PROTEIN, SERUM 5.4 g/dL (6.0-8.3)
[2019-12-23 08:49] LABS: BAND NEUTROPHILS % (MANUAL) 1 % (0-2); LYMPHOCYTES % (MANUAL) 1 % (22-44); MAN.DIFF COMMENT-IMPRESSION MANUAL DIFFERENTIAL; MONOCYTES % (MANUAL) 5 % (2-9); SEGMENTED NEUTROPHILS % 93 % (40-70)
[2019-12-23 08:50] LABS: PLATELET MORPHOLOGY COMMENT ADEQUATE
[2019-12-23] MEDS: ENOXAPARIN SODIUM 40 MG/0.4 ML SYRINGE SQ SCH ×2 (10:01→21:00)
[2019-12-23] MEDS: METHYLPREDNISOLONE SOD SUCC 40MG/ML 1ML IVP SCH ×2 (10:01→21:00)
[2019-12-23] MEDS: FAMOTIDINE/PF 20 MG/2 ML VIAL IV SCH ×2 (10:01→21:00)
[2019-12-23] MEDS: ZINC SULFATE 220 CAPSULE PO SCH (10:01)
[2019-12-23] MEDS: DOXYCYCLINE HYCLATE 100 MG TABLET PO SCH ×2 (10:01→21:00)
[2019-12-23] MEDS: ASCORBIC ACID 500 MG TAB PO SCH (10:01)
[2019-12-23] MEDS: DOCUSATE NA 100MG/10ML UDCUP PO SCH ×2 (10:01→21:00)
[2019-12-23] MEDS: VANCOMYCIN 1.25 GM in SODIUM CHLORIDE 0.9% 250 ML IV SCH ×2 (10:44→21:00)
--- NOTE | 2019-12-23 11:02 | NUR ---
RD FOLLOW UP Notification for Tube Feeding Recommendations received. Recommend Vital AF 1.2 initiated at 15mls/hr. Goal of 45mls/hr. Recommend Flush 100ml Q6hrs. Recommendations faxed to [facility]C, ext [phone]. RN notified. RD to continue to monitor.
[2019-12-23 22:47] LABS: APPEARANCE,URINE Cloudy (CLEAR); BILIRUBIN,URINE Negative (NEGATIVE); COLOR,URINE Yellow (YELLOW); GLUCOSE, URINE (UA) Negative (NEGATIVE); KETONES,URINE Trace mg/dL (NEGATIVE); LEUKOCYTE ESTERASE ,URINE Negative (NEGATIVE); NITRATE,URINE Negative (NEGATIVE); OCCULT BLOOD,URINE Large (NEGATIVE); PROTEIN,URINE Trace mg/dL (NEGATIVE)
[2019-12-23 23:02] LABS: BACTERIA,URINE None Seen /HPF (None Seen); MUCUS,URINE Few LPF (None Seen); SQUAMOUS EPITHELIAL CELL,UR Rare /HPF (0-2); WBC,URINE None Seen /HPF (0-1)
[2019-12-23 23:03] LABS: AMORPHOUS SEDIMENT,UR Moderate /LPF (None Seen)
[2019-12-24] VITALS (75 sets, daily range): BP systolic 80–144; BP diastolic 43–77
[2019-12-24] MEDS: MIDAZOLAM 50MG-0.9% NS 50ML 50 ML BAG IV SCH ×2 (00:53→22:15)
[2019-12-24] MEDS: NOREPINEPHRINE 4MG/NS 250ML 250 ML IV SCH ×3 (00:55→23:27)
[2019-12-24 03:53] LABS: BASOPHILS % (AUTO) 0.1 % (0.0-5.0); HEMATOCRIT 39.6 % (42-54); LYMPHOCYTES % (AUTO) 3.2 % (21.0-51.0); MEAN CORPUSCULAR HEMOGLOBIN 30.8 pg (27.0-33.0); MEAN CORPUSCULAR HGB CONC 32.3 g/dL (32.0-36.0); MEAN CORPUSCULAR VOLUME 95.2 fL (79-99); MONOCYTES % (AUTO) 4.4 % (3.0-13.0); NEUTROPHILS % (AUTO) 91.6 % (40.0-77.0); PLATELET COUNT (AUTO) 134 K/uL (130-400); RED BLOOD CELL COUNT(AUTO) 4.16 MIL/uL (4.50-6.20); RED CELL DISTRIBUTION WIDTH 13.7 % (11.0-15.5); WHITE BLOOD COUNT (AUTO) 16.4 K/uL (4.8-10.8)
[2019-12-24] MEDS: MEROPENEM 1 GM VIAL IVP SCH ×3 (04:01→18:28)
[2019-12-24 04:22] LABS: ALBUMIN 1.5 g/dL (3.5-5.0); BILIRUBIN,TOTAL 0.6 mg/dL (0.2-1.0); CREATININE 0.6 mg/dL (0.5-1.5); CRP QUANTITATIVE 22.9 mg/L (0.00-9.0); MAGNESIUM 2.6 mg/dL (1.80-2.40); PHOSPHORUS 3.2 mg/dL (2.5-4.9); POTASSIUM 4.8 mmol/L (3.5-5.1)
[2019-12-24] MEDS: DOCUSATE NA 100MG/10ML UDCUP PO SCH ×2 (08:55→21:26)
[2019-12-24] MEDS: FAMOTIDINE/PF 20 MG/2 ML VIAL IV SCH ×2 (08:55→21:26)
[2019-12-24] MEDS: METHYLPREDNISOLONE SOD SUCC 40MG/ML 1ML IVP SCH ×2 (08:55→21:25)
[2019-12-24] MEDS: ASCORBIC ACID 500 MG TAB PO SCH (08:56)
[2019-12-24] MEDS: ZINC SULFATE 220 CAPSULE PO SCH (08:56)
[2019-12-24] MEDS: DOXYCYCLINE HYCLATE 100 MG TABLET PO SCH (08:56)
[2019-12-24] MEDS: ENOXAPARIN SODIUM 40 MG/0.4 ML SYRINGE SQ SCH (08:57)
[2019-12-24] MEDS: VANCOMYCIN 1.25 GM in SODIUM CHLORIDE 0.9% 250 ML IV SCH (09:49)
[2019-12-24] MEDS: FENTANYL 2500MCG+NS 250ML 250 ML IV PRN ×2 (09:55→22:11)
[2019-12-24] MEDS: INSULIN REGULAR, HUMAN 3ML 100 UNIT in SODIUM CHLORIDE 0.9% 99 ML IV SCH ×2 (09:56)
[2019-12-24] MEDS ORDERED: PHARMACY COMMUNICATION MISC SCH (10:00)
[2019-12-24] MEDS: LACTULOSE 20 GM/30 ML UDCUP PO PRN (16:09)
[2019-12-24] MEDS: POLYETHYLENE GLYCOL 3350 17 GM POWD.PACK PO SCH (16:10)
[2019-12-24] MEDS: ENOXAPARIN SODIUM 80 MG/0.8 ML SQ SCH (21:27)
--- NOTE | 2019-12-24 21:38 | NUR ---
Blood Pressure 81/48 2109: Blood pressure dropped to 81/48, increased Levophed to 0.10mcg, Blood pressure improved to118/74 Heart rate86 Addendum: 12/24/19 at 2143 by BUSHRA FERNANDEZ RN RN 2109 Error, blood pressure increased to 138/75 Heart rate 53
[2019-12-25] VITALS (78 sets, daily range): BP systolic 75–189; BP diastolic 31–94
[2019-12-25] MEDS: MEROPENEM 1 GM VIAL IVP SCH ×3 (03:02→17:22)
[2019-12-25] MEDS: MIDAZOLAM 50MG-0.9% NS 50ML 50 ML BAG IV SCH (06:46)
[2019-12-25] MEDS: FAMOTIDINE/PF 20 MG/2 ML VIAL IV SCH ×2 (08:09→19:17)
[2019-12-25] MEDS: METHYLPREDNISOLONE SOD SUCC 40MG/ML 1ML IVP SCH ×2 (08:09→19:17)
[2019-12-25] MEDS: DOCUSATE NA 100MG/10ML UDCUP PO SCH ×2 (08:09→19:17)
[2019-12-25] MEDS: ZINC SULFATE 220 CAPSULE PO SCH (08:09)
[2019-12-25] MEDS: ASCORBIC ACID 500 MG TAB PO SCH (08:10)
[2019-12-25] MEDS: POLYETHYLENE GLYCOL 3350 17 GM POWD.PACK PO SCH (08:10)
[2019-12-25] MEDS: ENOXAPARIN SODIUM 80 MG/0.8 ML SQ SCH ×2 (08:14→19:24)
--- NOTE | 2019-12-25 08:15 | NUR ---
SEDATION VACATION. NOT TOLERATED. HR UP TO 140'S O2 SAT DOWN TO 80'S. TURNED UP SEDATION AND PAIN MEDICINE MADE PT COMFORTABLE
[2019-12-25] MEDS: FENTANYL 2500MCG+NS 250ML 250 ML IV PRN ×2 (09:48→22:08)
--- NOTE | 2019-12-25 10:29 | NUR ---
FEEDINGS TOLERATING WITH LOW RESIDUALS. INSULIN DRIP TO KEEP GLUCOSE BETWEEN 140-200
[2019-12-25] MEDS: DEXMEDETOMIDINE HCL 400 MCG in SODIUM CHLORIDE 0.9% 100 ML IV SCH (12:36)
[2019-12-25] MEDS: LACTULOSE 20 GM/30 ML UDCUP PO PRN (12:37)
[2019-12-25] MEDS: PROPOFOL 1000 MG/100 ML IV PRN ×2 (12:38→22:58)
[2019-12-25 14:51] LABS: ABG BASE EXCESS 3.6 mmol/L (-2.0-3.0); ABG HCO3 32.7 mmol/L (21.0-28.0); ABG PCO2 70 mmHg (35-48)
[2019-12-25] MEDS ORDERED: SODIUM CHLORIDE 0.9% 1000ML 1,000 ML IV ONE (18:14)
[2019-12-25 18:24] LABS: ABG BASE EXCESS 6.1 mmol/L (-2.0-3.0); ABG HCO3 33.4 mmol/L (21.0-28.0); ABG OXYGEN SATURATION 92.1 % (95.0-99.0); ABG PCO2 59 mmHg (35-48)
[2019-12-25] MEDS: INSULIN REGULAR, HUMAN 3ML 100 UNIT in SODIUM CHLORIDE 0.9% 99 ML IV SCH ×2 (18:32)
--- NOTE | 2019-12-25 20:22 | NUR ---
Receiving patient Received pt stable, no distress noted. 1957 Blood sugar 104,Insulin increased from 6 to 7 will re-check in 30 mins, pt asymptomatic.
--- NOTE | 2019-12-25 20:56 | NUR ---
Blood Sugar Re-check/Pt arousal Blood sugar 97, Increased insulin to 8... Pt began getting aroused,increased Precedex to 0.4mcg, will continue to monitor. Addendum: 12/25/19 at 1484 by BUSHRA FERNANDEZ RN RN Error in charting, insulin was decreased from 8 to 6
[2019-12-26] VITALS (88 sets, daily range): BP systolic 76–163; BP diastolic 41–86
--- NOTE | 2019-12-26 00:07 | NUR ---
Low blood sugar Insulin held until blood sugar improve, will re-check in 30 minutes
[2019-12-26] MEDS ORDERED: DEXMEDETOMIDINE HCL 200 MCG/2 ML VIAL IV ONE ×2 (01:07)
[2019-12-26] MEDS: DEXMEDETOMIDINE HCL 400 MCG in SODIUM CHLORIDE 0.9% 100 ML IV SCH ×2 (01:26→16:15)
[2019-12-26] MEDS: MEROPENEM 1 GM VIAL IVP SCH ×3 (03:57→17:55)
[2019-12-26 04:32] LABS: BASOPHILS % (AUTO) 0.1 % (0.0-5.0); HEMATOCRIT 40.1 % (42-54); MEAN CORPUSCULAR HEMOGLOBIN 30.8 pg (27.0-33.0); MEAN CORPUSCULAR HGB CONC 32.9 g/dL (32.0-36.0); MEAN CORPUSCULAR VOLUME 93.7 fL (79-99); MONOCYTES % (AUTO) 5.6 % (3.0-13.0); NEUTROPHILS % (AUTO) 90.5 % (40.0-77.0); PLATELET COUNT (AUTO) 124 K/uL (130-400); RED BLOOD CELL COUNT(AUTO) 4.28 MIL/uL (4.50-6.20); RED CELL DISTRIBUTION WIDTH 13.2 % (11.0-15.5); WHITE BLOOD COUNT (AUTO) 16.4 K/uL (4.8-10.8)
[2019-12-26 04:46] LABS: ALBUMIN 1.7 g/dL (3.5-5.0); CREATININE 0.6 mg/dL (0.5-1.5); CRP QUANTITATIVE 15.9 mg/L (0.00-9.0); POTASSIUM 4.7 mmol/L (3.5-5.1); TOTAL PROTEIN, SERUM 5.4 g/dL (6.0-8.3)
[2019-12-26] MEDS: PROPOFOL 1000 MG/100 ML IV PRN ×3 (05:27→20:03)
[2019-12-26 07:03] LABS: ABG BASE EXCESS 11.2 mmol/L (-2.0-3.0); ABG HCO3 37.1 mmol/L (21.0-28.0); ABG OXYGEN SATURATION 88.5 % (95.0-99.0); ABG PCO2 53 mmHg (35-48)
[2019-12-26] MEDS: POLYETHYLENE GLYCOL 3350 17 GM POWD.PACK PO SCH (08:29)
[2019-12-26] MEDS: DOCUSATE NA 100MG/10ML UDCUP PO SCH ×2 (08:29→20:18)
[2019-12-26] MEDS: METHYLPREDNISOLONE SOD SUCC 40MG/ML 1ML IVP SCH ×2 (08:29→20:18)
[2019-12-26] MEDS: ZINC SULFATE 220 CAPSULE PO SCH (08:29)
[2019-12-26] MEDS: ENOXAPARIN SODIUM 80 MG/0.8 ML SQ SCH ×2 (08:30→20:20)
[2019-12-26] MEDS: ASCORBIC ACID 500 MG TAB PO SCH (08:30)
[2019-12-26] MEDS: FAMOTIDINE/PF 20 MG/2 ML VIAL IV SCH ×2 (08:31→20:18)
--- NOTE | 2019-12-26 09:30 | NUR ---
PT AROUSED WITH POSITION CHANGE. LOW O2 SAT. DR PIEDRA NOTIFIED. INCREASED SEDATION PER MD AND RESTARTED PRECEDEX DRIP.
--- NOTE | 2019-12-26 10:30 | NUR ---
PRONE POSITION PER MD DUE TO LOW O2 SAT DESPITE INCREASED SEDATION
[2019-12-26] MEDS: FENTANYL 2500MCG+NS 250ML 250 ML IV PRN ×2 (11:46→23:03)
[2019-12-26] MEDS: LACTULOSE 20 GM/30 ML UDCUP PO PRN (12:11)
[2019-12-26] MEDS: INSULIN REGULAR, HUMAN 3ML 100 UNIT in SODIUM CHLORIDE 0.9% 99 ML IV SCH ×2 (16:13)
--- NOTE | 2019-12-26 20:30 | NUR ---
PATIENT RECEIVED IN BED, PRONE. PATIENT ON VENTILATOR AC TV 450/FIO2 100%/ PEEP5/RATE 28 WITH SATURATIONS 98%. PATIENT ON PROPOFOL 50MCG/KG/MIN (20.1 ML/H), PRECEDEX 0.6 MCG/KG/HR (10.5ML/H), FENTANYL 200 MCG/HR (20ML/H), LEVOPHED 0.05 MCG/KG/MIN (12.93ML/H) AND NS KVO ALL PATIENT IS ALSO ON AN INSULIN DRIP CURRENTLY RUNNING AT 5 UNITS. PT DOES NOT WITHDRAW TO PAIN AT THIS TIME. OG TUBE IS CLAMPED, PT TO RECEIVED BOLUS FEEDS OF VITAL AF 40ML EVERY HR. F/C DRAINING WELL TO GRAVITY WITH CLEAR YELLOW URINE. BP STABLE AT THIS TIME. WILL CONT TO MONITOR CLOSELY. PATIENT IS A FULL CODE. PATIENT TO BE SWITCHED TO SUPINE POSITION AT 0500.
[2019-12-26] MEDS: NOREPINEPHRINE 4MG/NS 250ML 250 ML IV SCH (22:47)
[2019-12-26] MEDS ORDERED: DEXTROSE 50%-WATER 50 ML DISP.SYRIN IV ONE (23:38)
[2019-12-27] VITALS (29 sets, daily range): BP systolic 87–151; BP diastolic 50–82
[2019-12-27] MEDS: PROPOFOL 1000 MG/100 ML IV PRN ×5 (00:16→20:09)
[2019-12-27] MEDS: MEROPENEM 1 GM VIAL IVP SCH ×3 (01:07→17:19)
[2019-12-27] MEDS: DEXMEDETOMIDINE HCL 400 MCG in SODIUM CHLORIDE 0.9% 100 ML IV SCH ×2 (02:56→09:27)
--- NOTE | 2019-12-27 03:25 | NUR ---
PATIENT WAS NOTED TO HAVE ST 108, RESPIRATORY THERAPIST RAYMUNDO AND PRIMARY NURSE ARLETTE RN, ASSESSED PATIENT. PATIENT WAS EXPERIENCING EMESIS. FEEDING PUMP IMMEDIATELY TURNED OFF, PATIENT WAS SUCTIONED. ZOFRAN WAS ADMINISTERED. PATIENT WAS WITH EYES OPEN AND BLINKED IN RESPONSE. PATIENT FOLLOWING COMMANDS. WILL CONT TO MONITOR CLOSELY.
--- NOTE | 2019-12-27 03:44 | NUR ---
PATIENT IS CALM, VITALS STABLE. WILL CONT TO MONITOR CLOSELY. SR 66 ARTERIAL BP 138/71.
--- NOTE | 2019-12-27 05:11 | NUR ---
PATIENT PLACED ON SUPINE POSITION WITH ASSISTANCE OF 4 NURSES AND 1 ART CONSULTANT. PT TOLERATED WELL. WILL RESUME FEEDING PER ORDERS.
[2019-12-27 06:14] LABS: BASOPHILS % (AUTO) 0.1 % (0.0-5.0); HEMATOCRIT 40.5 % (42-54); LYMPHOCYTES % (AUTO) 3.9 % (21.0-51.0); MEAN CORPUSCULAR HGB CONC 32.1 g/dL (32.0-36.0); MEAN CORPUSCULAR VOLUME 93.3 fL (79-99); MONOCYTES % (AUTO) 8.8 % (3.0-13.0); NEUTROPHILS % (AUTO) 86.7 % (40.0-77.0); PLATELET COUNT (AUTO) 128 K/uL (130-400); RED BLOOD CELL COUNT(AUTO) 4.34 MIL/uL (4.50-6.20); RED CELL DISTRIBUTION WIDTH 13.2 % (11.0-15.5); WHITE BLOOD COUNT (AUTO) 14.8 K/uL (4.8-10.8)
[2019-12-27 06:19] LABS: ALBUMIN 1.6 g/dL (3.5-5.0); BILIRUBIN,TOTAL 0.7 mg/dL (0.2-1.0); CREATININE 0.5 mg/dL (0.5-1.5); CRP QUANTITATIVE 16.2 mg/L (0.00-9.0); POTASSIUM 4.2 mmol/L (3.5-5.1); TOTAL PROTEIN, SERUM 5.3 g/dL (6.0-8.3)
[2019-12-27 07:16] LABS: ABG BASE EXCESS 12.1 mmol/L (-2.0-3.0); ABG OXYGEN SATURATION 88.5 % (95.0-99.0); ABG PCO2 53 mmHg (35-48)
[2019-12-27] MEDS: DOCUSATE NA 100MG/10ML UDCUP PO SCH ×2 (08:23→20:13)
[2019-12-27] MEDS: ASCORBIC ACID 500 MG TAB PO SCH (08:23)
[2019-12-27] MEDS: ZINC SULFATE 220 CAPSULE PO SCH (08:23)
[2019-12-27] MEDS: METHYLPREDNISOLONE SOD SUCC 40MG/ML 1ML IVP SCH ×2 (08:24→20:13)
[2019-12-27] MEDS: ENOXAPARIN SODIUM 80 MG/0.8 ML SQ SCH ×2 (08:24→20:13)
[2019-12-27] MEDS: POLYETHYLENE GLYCOL 3350 17 GM POWD.PACK PO SCH (08:24)
[2019-12-27] MEDS: NOREPINEPHRINE 4MG/NS 250ML 250 ML IV SCH (09:27)
[2019-12-27] MEDS: FAMOTIDINE/PF 20 MG/2 ML VIAL IV SCH ×2 (09:27→20:13)
[2019-12-27] MEDS: FENTANYL 2500MCG+NS 250ML 250 ML IV PRN ×2 (12:18→20:10)
[2019-12-28] VITALS (92 sets, daily range): BP systolic 71–150; BP diastolic 41–83
[2019-12-28] MEDS: DEXMEDETOMIDINE HCL 400 MCG in SODIUM CHLORIDE 0.9% 100 ML IV SCH ×3 (00:55→22:20)
[2019-12-28] MEDS: PROPOFOL 1000 MG/100 ML IV PRN ×3 (00:56→15:15)
[2019-12-28] MEDS: MEROPENEM 1 GM VIAL IVP SCH ×3 (01:23→18:29)
[2019-12-28] MEDS: MIDAZOLAM 50MG-0.9% NS 50ML 50 ML BAG IV SCH ×3 (01:24→22:19)
[2019-12-28 05:51] LABS: BASOPHILS % (AUTO) 0.1 % (0.0-5.0); EOSINOPHILS % (AUTO) 0.1 % (0.0-8.0); HEMATOCRIT 41.1 % (42-54); LYMPHOCYTES % (AUTO) 2.6 % (21.0-51.0); MEAN CORPUSCULAR HEMOGLOBIN 30.7 pg (27.0-33.0); MEAN CORPUSCULAR HGB CONC 31.9 g/dL (32.0-36.0); MEAN CORPUSCULAR VOLUME 96.3 fL (79-99); MONOCYTES % (AUTO) 3.5 % (3.0-13.0); PLATELET COUNT (AUTO) 136 K/uL (130-400); RED BLOOD CELL COUNT(AUTO) 4.27 MIL/uL (4.50-6.20); RED CELL DISTRIBUTION WIDTH 13.9 % (11.0-15.5)
[2019-12-28 06:14] LABS: ALBUMIN 1.6 g/dL (3.5-5.0); BILIRUBIN,TOTAL 0.9 mg/dL (0.2-1.0); CREATININE 0.7 mg/dL (0.5-1.5); CRP QUANTITATIVE 25.9 mg/L (0.00-9.0); POTASSIUM 4.7 mmol/L (3.5-5.1); TOTAL PROTEIN, SERUM 5.4 g/dL (6.0-8.3)
--- NOTE | 2019-12-28 08:00 | NUR ---
PLACED ON HIS BACK FROM PRONE POSITION WITHOUT INCIDENT. VS STABLE. OG TUBE IN PLACE. FEEDING STATED.
[2019-12-28] MEDS: DOCUSATE NA 100MG/10ML UDCUP PO SCH ×2 (08:05→21:49)
[2019-12-28] MEDS: ZINC SULFATE 220 CAPSULE PO SCH (08:05)
[2019-12-28] MEDS: POLYETHYLENE GLYCOL 3350 17 GM POWD.PACK PO SCH (08:05)
[2019-12-28] MEDS: ASCORBIC ACID 500 MG TAB PO SCH (08:05)
[2019-12-28] MEDS: FAMOTIDINE/PF 20 MG/2 ML VIAL IV SCH ×2 (08:05→21:50)
[2019-12-28] MEDS: METHYLPREDNISOLONE SOD SUCC 40MG/ML 1ML IVP SCH ×2 (08:05→21:49)
[2019-12-28] MEDS: ENOXAPARIN SODIUM 80 MG/0.8 ML SQ SCH ×2 (08:06→21:49)
[2019-12-28] MEDS: NOREPINEPHRINE 4MG/NS 250ML 250 ML IV SCH ×2 (09:29→19:17)
[2019-12-28 09:42] LABS: ABG BASE EXCESS 9.3 mmol/L (-2.0-3.0); ABG HCO3 35.4 mmol/L (21.0-28.0); ABG OXYGEN SATURATION 85.1 % (95.0-99.0); ABG PCO2 53 mmHg (35-48)
[2019-12-28] MEDS: LACTULOSE 20 GM/30 ML UDCUP PO PRN (10:26)
[2019-12-28] MEDS: FENTANYL 2500MCG+NS 250ML 250 ML IV PRN (13:03)
[2019-12-28] MEDS ORDERED: SIMETHICONE 80 MG TAB.CHEW NG SCH (14:00)
[2019-12-28] MEDS ORDERED: VANCOMYCIN PROTOCOL PER PHARMACY IV SCH (14:00)
[2019-12-28 14:02] LABS: ABG HCO3 33.9 mmol/L (21.0-28.0); ABG OXYGEN SATURATION 86.4 % (95.0-99.0); ABG PCO2 51 mmHg (35-48)
[2019-12-28] MEDS ORDERED: COMPOUND IV REFRIGERATED 1 EACH IVSOLN MISC PRN (14:15)
[2019-12-28] MEDS ORDERED: VANCOMYCIN 1.5 GM in SODIUM CHLORIDE 0.9% 250 ML IV ONE (14:15)
--- NOTE | 2019-12-28 14:30 | NUR ---
KUB TAKEN TO RULE OUT ILLEUM
[2019-12-28] MEDS: ACETAMINOPHEN 325 MG TAB PO PRN (14:41)
--- NOTE | 2019-12-28 15:34 | NUR ---
PLACED ON PRONE POSITION DUE TO LOW PO2 ON ABG.
[2019-12-28] MEDS: VANCOMYCIN 1GM+NS 250ML 250 ML IV SCH (21:50)
[2019-12-29] VITALS (81 sets, daily range): BP systolic 68–142; BP diastolic 40–78
[2019-12-29] MEDS: FENTANYL 2500MCG+NS 250ML 250 ML IV PRN ×2 (01:27→14:51)
[2019-12-29] MEDS: MEROPENEM 1 GM VIAL IVP SCH ×4 (01:27→17:23)
[2019-12-29] MEDS: PROPOFOL 1000 MG/100 ML IV PRN ×3 (01:27→18:37)
[2019-12-29 03:49] LABS: MEAN CORPUSCULAR HEMOGLOBIN 30.2 pg (27.0-33.0); MEAN CORPUSCULAR HGB CONC 31.6 g/dL (32.0-36.0); MEAN CORPUSCULAR VOLUME 95.6 fL (79-99); PLATELET COUNT (AUTO) 145 K/uL (130-400); RED CELL DISTRIBUTION WIDTH 13.6 % (11.0-15.5); WHITE BLOOD COUNT (AUTO) 14.7 K/uL (4.8-10.8)
[2019-12-29 04:09] LABS: ALBUMIN 1.7 g/dL (3.5-5.0); BILIRUBIN,TOTAL 1.1 mg/dL (0.2-1.0); CREATININE 0.6 mg/dL (0.5-1.5); CRP QUANTITATIVE 50.2 mg/L (0.00-9.0); POTASSIUM 4.4 mmol/L (3.5-5.1); TOTAL PROTEIN, SERUM 5.8 g/dL (6.0-8.3)
[2019-12-29 04:21] LABS: LYMPHOCYTES % (MANUAL) 1 % (22-44); MAN.DIFF COMMENT-IMPRESSION MANUAL DIFFERENTIAL; MONOCYTES % (MANUAL) 2 % (2-9); SEGMENTED NEUTROPHILS % 97 % (40-70)
[2019-12-29] MEDS: VANCOMYCIN 1GM+NS 250ML 250 ML IV SCH ×3 (05:50→21:56)
[2019-12-29 07:17] LABS: ABG HCO3 32.9 mmol/L (21.0-28.0); ABG OXYGEN SATURATION 86.9 % (95.0-99.0); ABG PCO2 56 mmHg (35-48)
--- NOTE | 2019-12-29 07:30 | NUR ---
PLACED ON HIUS BACK, PT TOLERATING WITH SP02 96%
[2019-12-29] MEDS: DOCUSATE NA 100MG/10ML UDCUP PO SCH ×2 (08:13→20:01)
[2019-12-29] MEDS: POLYETHYLENE GLYCOL 3350 17 GM POWD.PACK PO SCH (08:13)
[2019-12-29] MEDS: ASCORBIC ACID 500 MG TAB PO SCH (08:13)
[2019-12-29] MEDS: ZINC SULFATE 220 CAPSULE PO SCH (08:13)
[2019-12-29] MEDS: METHYLPREDNISOLONE SOD SUCC 40MG/ML 1ML IVP SCH ×2 (08:13→20:01)
[2019-12-29] MEDS: FAMOTIDINE/PF 20 MG/2 ML VIAL IV SCH ×2 (08:13→20:01)
[2019-12-29] MEDS: ENOXAPARIN SODIUM 80 MG/0.8 ML SQ SCH ×2 (08:14→19:59)
[2019-12-29] MEDS: NOREPINEPHRINE 4MG/NS 250ML 250 ML IV SCH ×2 (08:17→22:54)
[2019-12-29] MEDS: PHARMACY COMMUNICATION MISC SCH ×3 (10:15→14:15)
[2019-12-29] MEDS: DEXMEDETOMIDINE HCL 400 MCG in SODIUM CHLORIDE 0.9% 100 ML IV SCH ×3 (11:09→23:30)
--- NOTE | 2019-12-29 11:53 | NUR ---
SPO2 88% PLACED ON PRONE POSITION
[2019-12-29] MEDS: MIDAZOLAM 50MG-0.9% NS 50ML 50 ML BAG IV SCH (17:23)
[2019-12-29] MEDS: INSULIN REGULAR, HUMAN 3ML 100 UNIT in SODIUM CHLORIDE 0.9% 99 ML IV SCH ×2 (17:28)
[2019-12-29] MEDS ORDERED: SODIUM CHLORIDE 0.9% 500ML 500 ML IV ONE (19:55)
[2019-12-30] VITALS (40 sets, daily range): BP systolic 30–134; BP diastolic 44–75
[2019-12-30] MEDS: MEROPENEM 1 GM VIAL IVP SCH ×3 (01:58→18:41)
[2019-12-30] MEDS: FENTANYL 2500MCG+NS 250ML 250 ML IV PRN ×3 (02:32→18:42)
[2019-12-30] MEDS: MIDAZOLAM 50MG-0.9% NS 50ML 50 ML BAG IV SCH ×2 (02:32→14:15)
--- NOTE | 2019-12-30 03:00 | NUR ---
PLACED ON BACK, PT TOLERATING WITH SP02 96%. HEMODYNAMICALLY STABLE AND CURRENTLY ON PRESSORS.
[2019-12-30 04:39] LABS: HEMATOCRIT 36.9 % (42-54); MEAN CORPUSCULAR HEMOGLOBIN 30.8 pg (27.0-33.0); MEAN CORPUSCULAR HGB CONC 32.5 g/dL (32.0-36.0); MEAN CORPUSCULAR VOLUME 94.6 fL (79-99); PLATELET COUNT (AUTO) 158 K/uL (130-400); RED CELL DISTRIBUTION WIDTH 13.4 % (11.0-15.5); WHITE BLOOD COUNT (AUTO) 14.1 K/uL (4.8-10.8)
[2019-12-30 04:59] LABS: ALBUMIN 1.5 g/dL (3.5-5.0); BILIRUBIN,TOTAL 0.9 mg/dL (0.2-1.0); CREATININE 0.4 mg/dL (0.5-1.5); CRP QUANTITATIVE 30.6 mg/L (0.00-9.0); POTASSIUM 4.4 mmol/L (3.5-5.1); TOTAL PROTEIN, SERUM 5.1 g/dL (6.0-8.3)
[2019-12-30] MEDS: VANCOMYCIN 1GM+NS 250ML 250 ML IV SCH ×3 (05:10→22:01)
[2019-12-30 05:18] LABS: LYMPHOCYTES % (MANUAL) 2 % (22-44); MAN.DIFF COMMENT-IMPRESSION MANUAL DIFFERENTIAL; MONOCYTES % (MANUAL) 3 % (2-9); PLATELET MORPHOLOGY COMMENT ADEQUATE; SEGMENTED NEUTROPHILS % 95 % (40-70)
[2019-12-30] MEDS: PROPOFOL 1000 MG/100 ML IV PRN ×2 (06:25→17:46)
[2019-12-30] MEDS: DEXMEDETOMIDINE HCL 400 MCG in SODIUM CHLORIDE 0.9% 100 ML IV SCH ×3 (06:26→21:17)
[2019-12-30 07:12] LABS: ABG BASE EXCESS 5.2 mmol/L (-2.0-3.0); ABG HCO3 30.5 mmol/L (21.0-28.0); ABG OXYGEN SATURATION 88.5 % (95.0-99.0); ABG PCO2 47 mmHg (35-48)
[2019-12-30] MEDS: FAMOTIDINE/PF 20 MG/2 ML VIAL IV SCH ×2 (10:31→21:15)
[2019-12-30] MEDS: POLYETHYLENE GLYCOL 3350 17 GM POWD.PACK PO SCH (10:31)
[2019-12-30] MEDS: ASCORBIC ACID 500 MG TAB PO SCH (10:32)
[2019-12-30] MEDS: DOCUSATE NA 100MG/10ML UDCUP PO SCH ×2 (10:33→21:15)
[2019-12-30] MEDS: ENOXAPARIN SODIUM 80 MG/0.8 ML SQ SCH ×2 (10:33→21:16)
[2019-12-30] MEDS: ZINC SULFATE 220 CAPSULE PO SCH (10:33)
[2019-12-30] MEDS: METHYLPREDNISOLONE SOD SUCC 40MG/ML 1ML IVP SCH ×2 (10:34→21:15)
[2019-12-30] MEDS: NOREPINEPHRINE 4MG/NS 250ML 250 ML IV SCH (12:27)
[2019-12-30 16:58] LABS: ABG BASE EXCESS 4.3 mmol/L (-2.0-3.0); ABG HCO3 29.5 mmol/L (21.0-28.0); ABG OXYGEN SATURATION 91.4 % (95.0-99.0); ABG PCO2 46 mmHg (35-48)
--- NOTE | 2019-12-30 17:05 | NUR ---
Documentation complete Completed family history. Information was given by Kelby Kim (brother)
[2019-12-31] VITALS (19 sets, daily range): BP systolic 94–127; BP diastolic 54–69
[2019-12-31] MEDS: MEROPENEM 1 GM VIAL IVP SCH ×3 (02:04→18:21)
[2019-12-31] MEDS: MIDAZOLAM 100MG-0.9% NS 100ML 100 ML IV SCH ×2 (02:54→23:20)
[2019-12-31] MEDS: DEXMEDETOMIDINE HCL 400 MCG in SODIUM CHLORIDE 0.9% 100 ML IV SCH ×3 (04:50→15:11)
[2019-12-31 05:38] LABS: MEAN CORPUSCULAR HEMOGLOBIN 30.8 pg (27.0-33.0); MEAN CORPUSCULAR HGB CONC 32.5 g/dL (32.0-36.0); MEAN CORPUSCULAR VOLUME 94.7 fL (79-99); PLATELET COUNT (AUTO) 178 K/uL (130-400); RED CELL DISTRIBUTION WIDTH 13.7 % (11.0-15.5); WHITE BLOOD COUNT (AUTO) 13.1 K/uL (4.8-10.8)
[2019-12-31] MEDS: FENTANYL 2500MCG+NS 250ML 250 ML IV PRN ×4 (05:49→17:58)
[2019-12-31 05:55] LABS: ALBUMIN 1.4 g/dL (3.5-5.0); BILIRUBIN,TOTAL 0.7 mg/dL (0.2-1.0); CREATININE 0.4 mg/dL (0.5-1.5); CRP QUANTITATIVE 28.3 mg/L (0.00-9.0); LYMPHOCYTES % (MANUAL) 3 % (22-44); MAN.DIFF COMMENT-IMPRESSION MANUAL DIFFERENTIAL; POTASSIUM 4.3 mmol/L (3.5-5.1); REACTIVE LYMPHOCYTES 1 % (0-0); SEGMENTED NEUTROPHILS % 96 % (40-70)
[2019-12-31 05:56] LABS: PLATELET MORPHOLOGY COMMENT ADEQUATE
[2019-12-31] MEDS: VANCOMYCIN 1GM+NS 250ML 250 ML IV SCH ×3 (06:00→22:51)
[2019-12-31] MEDS ORDERED: PHARMACY COMMUNICATION MISC SCH (06:45)
[2019-12-31] MEDS: ZINC SULFATE 220 CAPSULE PO SCH (09:17)
[2019-12-31] MEDS: ASCORBIC ACID 500 MG TAB PO SCH (09:17)
[2019-12-31] MEDS: METHYLPREDNISOLONE SOD SUCC 40MG/ML 1ML IVP SCH ×2 (09:17→20:51)
[2019-12-31] MEDS: POLYETHYLENE GLYCOL 3350 17 GM POWD.PACK PO SCH (09:18)
[2019-12-31] MEDS: ENOXAPARIN SODIUM 80 MG/0.8 ML SQ SCH ×2 (09:18→20:51)
[2019-12-31] MEDS: FAMOTIDINE/PF 20 MG/2 ML VIAL IV SCH ×2 (09:18→20:51)
[2019-12-31] MEDS: DOCUSATE NA 100MG/10ML UDCUP PO SCH ×2 (09:18→20:51)
[2019-12-31 10:16] LABS: ABG BASE EXCESS 6.9 mmol/L (-2.0-3.0); ABG OXYGEN SATURATION 90.8 % (95.0-99.0); ABG PCO2 47 mmHg (35-48)
[2019-12-31] MEDS: PROPOFOL 1000 MG/100 ML IV PRN (15:13)
[2019-12-31] MEDS: ACETAMINOPHEN 325 MG TAB PO PRN (20:52)
[2019-12-31] MEDS ORDERED: SODIUM CHLORIDE 0.9% 500ML 500 ML IV ONE (22:30)
[2019-12-31] MEDS: INSULIN REGULAR, HUMAN 3ML 100 UNIT in SODIUM CHLORIDE 0.9% 99 ML IV SCH ×2 (23:21)
[2020-01-01] VITALS (15 sets, daily range): BP systolic 100–174; BP diastolic 52–80
[2020-01-01] MEDS: NOREPINEPHRINE 4MG/NS 250ML 250 ML IV SCH ×2 (02:14→14:49)
[2020-01-01] MEDS: MEROPENEM 1 GM VIAL IVP SCH ×2 (02:14→09:05)
[2020-01-01] MEDS: DEXMEDETOMIDINE HCL 400 MCG in SODIUM CHLORIDE 0.9% 100 ML IV SCH ×2 (03:04→08:52)
[2020-01-01] MEDS: ACETAMINOPHEN 325 MG TAB PO PRN (03:39)
[2020-01-01] MEDS: FENTANYL 2500MCG+NS 250ML 250 ML IV PRN ×2 (04:24→16:13)
[2020-01-01 04:42] LABS: EOSINOPHILS % (AUTO) 0.1 % (0.0-8.0); HEMATOCRIT 34.3 % (42-54); LYMPHOCYTES % (AUTO) 4.9 % (21.0-51.0); MEAN CORPUSCULAR HEMOGLOBIN 30.8 pg (27.0-33.0); MEAN CORPUSCULAR HGB CONC 32.1 g/dL (32.0-36.0); MEAN CORPUSCULAR VOLUME 96.1 fL (79-99); MONOCYTES % (AUTO) 5.7 % (3.0-13.0); PLATELET COUNT (AUTO) 171 K/uL (130-400); RED BLOOD CELL COUNT(AUTO) 3.57 MIL/uL (4.50-6.20); RED CELL DISTRIBUTION WIDTH 13.9 % (11.0-15.5); WHITE BLOOD COUNT (AUTO) 12.1 K/uL (4.8-10.8)
[2020-01-01 05:43] LABS: ALBUMIN 1.4 g/dL (3.5-5.0); BILIRUBIN,TOTAL 0.5 mg/dL (0.2-1.0); CREATININE 0.4 mg/dL (0.5-1.5); CRP QUANTITATIVE 19.4 mg/L (0.00-9.0); TOTAL PROTEIN, SERUM 4.9 g/dL (6.0-8.3)
[2020-01-01] MEDS: VANCOMYCIN 1GM+NS 250ML 250 ML IV SCH ×3 (05:59→22:13)
[2020-01-01] MEDS: POLYETHYLENE GLYCOL 3350 17 GM POWD.PACK PO SCH (08:52)
[2020-01-01] MEDS: FAMOTIDINE/PF 20 MG/2 ML VIAL IV SCH ×2 (08:52→22:13)
[2020-01-01] MEDS: DOCUSATE NA 100MG/10ML UDCUP PO SCH ×2 (08:52→22:13)
[2020-01-01] MEDS: ASCORBIC ACID 500 MG TAB PO SCH (08:52)
[2020-01-01] MEDS: METHYLPREDNISOLONE SOD SUCC 40MG/ML 1ML IVP SCH (08:52)
[2020-01-01] MEDS: ENOXAPARIN SODIUM 80 MG/0.8 ML SQ SCH ×2 (08:53→22:15)
[2020-01-01] MEDS: ZINC SULFATE 220 CAPSULE PO SCH (08:59)
--- NOTE | 2020-01-01 11:49 | NUR ---
RD FOLLOW UP Tube feeding initiated 12/23/19 @15mls per hour. Pt currently tolerating Tube Feeding Vital AF 1.2 @20mls/hr x 1 day. WBC 12.1, CO2 35, Cr 0.4, BG 141, Ca 7.1, LDH 338, Alb 1.4. Recommend to continue to advance as tolerated to Goal of 45mls/hr (1296kcal/81gm protein).
[2020-01-01] MEDS: FLUCONAZOLE 200 MG/NS 100 ML 100 ML IV SCH (14:52)
[2020-01-01] MEDS: PROPOFOL 1000 MG/100 ML IV PRN ×3 (15:02→23:13)
[2020-01-01] MEDS: MIDAZOLAM 100MG-0.9% NS 100ML 100 ML IV SCH (23:15)
[2020-01-01] MEDS: INSULIN REGULAR, HUMAN 3ML 100 UNIT in SODIUM CHLORIDE 0.9% 99 ML IV SCH ×2 (23:16)
[2020-01-02] VITALS (38 sets, daily range): BP systolic 83–172; BP diastolic 47–73
[2020-01-02] MEDS: PROPOFOL 1000 MG/100 ML IV PRN ×2 (04:01→08:51)
[2020-01-02] MEDS: VANCOMYCIN 1GM+NS 250ML 250 ML IV SCH ×3 (06:04→22:00)
[2020-01-02 06:43] LABS: BASOPHILS % (AUTO) 0.1 % (0.0-5.0); EOSINOPHILS % (AUTO) 3.4 % (0.0-8.0); HEMATOCRIT 32.2 % (42-54); LYMPHOCYTES % (AUTO) 10.2 % (21.0-51.0); MEAN CORPUSCULAR HEMOGLOBIN 31.2 pg (27.0-33.0); MEAN CORPUSCULAR HGB CONC 31.7 g/dL (32.0-36.0); MEAN CORPUSCULAR VOLUME 98.5 fL (79-99); MONOCYTES % (AUTO) 5.5 % (3.0-13.0); NEUTROPHILS % (AUTO) 80.3 % (40.0-77.0); PLATELET COUNT (AUTO) 159 K/uL (130-400); RED BLOOD CELL COUNT(AUTO) 3.27 MIL/uL (4.50-6.20); RED CELL DISTRIBUTION WIDTH 14.3 % (11.0-15.5); WHITE BLOOD COUNT (AUTO) 14.6 K/uL (4.8-10.8)
[2020-01-02 07:11] LABS: ALBUMIN 1.3 g/dL (3.5-5.0); BILIRUBIN,TOTAL 0.4 mg/dL (0.2-1.0); CREATININE 0.4 mg/dL (0.5-1.5); CRP QUANTITATIVE 17.3 mg/L (0.00-9.0); POTASSIUM 3.5 mmol/L (3.5-5.1); TOTAL PROTEIN, SERUM 4.3 g/dL (6.0-8.3)
[2020-01-02] MEDS: ZINC SULFATE 220 CAPSULE PO SCH (08:44)
[2020-01-02] MEDS: DOCUSATE NA 100MG/10ML UDCUP PO SCH ×2 (08:47→20:18)
[2020-01-02] MEDS: FAMOTIDINE/PF 20 MG/2 ML VIAL IV SCH ×2 (08:47→20:18)
[2020-01-02] MEDS: POLYETHYLENE GLYCOL 3350 17 GM POWD.PACK PO SCH (08:47)
[2020-01-02] MEDS: DEXAMETHASONE SOD PHOSPHATE 4 MG/ML 1ML VIAL IVP SCH (08:47)
[2020-01-02] MEDS: ENOXAPARIN SODIUM 80 MG/0.8 ML SQ SCH ×2 (08:50→20:20)
[2020-01-02] MEDS: ASCORBIC ACID 500 MG TAB PO SCH (09:00)
[2020-01-02] MEDS: FLUCONAZOLE 200 MG/NS 100 ML 100 ML IV SCH (15:00)
[2020-01-02] MEDS: FENTANYL 2500MCG+NS 250ML 250 ML IV PRN ×2 (18:08→20:21)
[2020-01-03] VITALS (58 sets, daily range): BP systolic 75–125; BP diastolic 47–76
[2020-01-03] MEDS: MIDAZOLAM 100MG-0.9% NS 100ML 100 ML IV SCH ×2 (00:30→22:13)
[2020-01-03] MEDS: PROPOFOL 1000 MG/100 ML IV PRN ×2 (00:30→22:13)
[2020-01-03 03:56] LABS: ABG BASE EXCESS 6.4 mmol/L (-2.0-3.0); ABG HCO3 33.9 mmol/L (21.0-28.0); ABG OXYGEN SATURATION 84.2 % (95.0-99.0); ABG PCO2 61 mmHg (35-48)
[2020-01-03 04:37] LABS: BASOPHILS % (AUTO) 0.1 % (0.0-5.0); EOSINOPHILS % (AUTO) 0.1 % (0.0-8.0); HEMATOCRIT 30.5 % (42-54); MEAN CORPUSCULAR HEMOGLOBIN 30.6 pg (27.0-33.0); MEAN CORPUSCULAR HGB CONC 30.8 g/dL (32.0-36.0); MEAN CORPUSCULAR VOLUME 99.3 fL (79-99); MONOCYTES % (AUTO) 7.1 % (3.0-13.0); PLATELET COUNT (AUTO) 182 K/uL (130-400); RED BLOOD CELL COUNT(AUTO) 3.07 MIL/uL (4.50-6.20); RED CELL DISTRIBUTION WIDTH 14.5 % (11.0-15.5); WHITE BLOOD COUNT (AUTO) 12.1 K/uL (4.8-10.8)
[2020-01-03] MEDS: VANCOMYCIN 1GM+NS 250ML 250 ML IV SCH ×2 (06:00→22:19)
[2020-01-03 06:29] LABS: CREATININE 0.6 mg/dL (0.5-1.5); MAGNESIUM 2.2 mg/dL (1.80-2.40); POTASSIUM 4.6 mmol/L (3.5-5.1)
[2020-01-03] MEDS: DEXAMETHASONE SOD PHOSPHATE 4 MG/ML 1ML VIAL IVP SCH (09:24)
[2020-01-03] MEDS: FAMOTIDINE/PF 20 MG/2 ML VIAL IV SCH ×2 (09:24→22:13)
[2020-01-03] MEDS: ZINC SULFATE 220 CAPSULE PO SCH (09:24)
[2020-01-03] MEDS: ASCORBIC ACID 500 MG TAB PO SCH (09:24)
[2020-01-03] MEDS: POLYETHYLENE GLYCOL 3350 17 GM POWD.PACK PO SCH (09:25)
[2020-01-03] MEDS: DOCUSATE NA 100MG/10ML UDCUP PO SCH ×2 (09:27→22:13)
[2020-01-03] MEDS: ENOXAPARIN SODIUM 80 MG/0.8 ML SQ SCH ×2 (09:27→22:18)
[2020-01-03 10:03] LABS: ABG BASE EXCESS 5.1 mmol/L (-2.0-3.0); ABG HCO3 32.8 mmol/L (21.0-28.0); ABG OXYGEN SATURATION 82.3 % (95.0-99.0); ABG PCO2 61 mmHg (35-48)
[2020-01-03] MEDS ORDERED: INSULIN GLARGINE 100 UNITS/ML 10 ML VIAL SQ ONE (15:45)
[2020-01-03] MEDS: FLUCONAZOLE 200 MG/NS 100 ML 100 ML IV SCH (16:57)
[2020-01-03] MEDS: FENTANYL 2500MCG+NS 250ML 250 ML IV PRN (22:16)
[2020-01-03] MEDS: NOREPINEPHRINE 4MG/NS 250ML 250 ML IV SCH (22:16)
[2020-01-04] VITALS (43 sets, daily range): BP systolic 79–120; BP diastolic 39–68
[2020-01-04] MEDS: PROPOFOL 1000 MG/100 ML IV PRN ×2 (04:18→22:14)
[2020-01-04] MEDS: DEXMEDETOMIDINE HCL 400 MCG in SODIUM CHLORIDE 0.9% 100 ML IV SCH ×2 (04:18→16:38)
[2020-01-04] MEDS: NOREPINEPHRINE 4MG/NS 250ML 250 ML IV SCH ×2 (04:19→22:12)
[2020-01-04 04:28] LABS: ABG HCO3 29.7 mmol/L (21.0-28.0); ABG OXYGEN SATURATION 94.9 % (95.0-99.0); ABG PCO2 48 mmHg (35-48)
[2020-01-04] MEDS: INSULIN GLARGINE 100 UNITS/ML 10 ML VIAL SQ SCH (05:29)
[2020-01-04] MEDS: VANCOMYCIN 1GM+NS 250ML 250 ML IV SCH ×3 (06:00→22:11)
[2020-01-04 06:40] LABS: BASOPHILS % (AUTO) 0.1 % (0.0-5.0); HEMATOCRIT 30.6 % (42-54); MEAN CORPUSCULAR HEMOGLOBIN 31.2 pg (27.0-33.0); MEAN CORPUSCULAR HGB CONC 31.7 g/dL (32.0-36.0); MEAN CORPUSCULAR VOLUME 98.4 fL (79-99); NEUTROPHILS % (AUTO) 85.3 % (40.0-77.0); PLATELET COUNT (AUTO) 216 K/uL (130-400); RED BLOOD CELL COUNT(AUTO) 3.11 MIL/uL (4.50-6.20); RED CELL DISTRIBUTION WIDTH 14.8 % (11.0-15.5); WHITE BLOOD COUNT (AUTO) 10.8 K/uL (4.8-10.8)
--- NOTE | 2020-01-04 06:50 | NUR ---
Progress Note Pt VSS on Levophed to maintain MAP. Pt placed back supine at 0100. ABG improved. Consulted with RT to keep pt on 16:8 Proning schedule.
[2020-01-04 07:14] LABS: ALBUMIN 1.3 g/dL (3.5-5.0); BILIRUBIN,TOTAL 0.5 mg/dL (0.2-1.0); CREATININE 0.5 mg/dL (0.5-1.5); POTASSIUM 4.8 mmol/L (3.5-5.1); TOTAL PROTEIN, SERUM 4.5 g/dL (6.0-8.3)
[2020-01-04 07:31] LABS: CRP QUANTITATIVE 124.1 mg/L (0.00-9.0)
[2020-01-04] MEDS: DOCUSATE NA 100MG/10ML UDCUP PO SCH ×2 (09:00→22:10)
[2020-01-04] MEDS: ENOXAPARIN SODIUM 80 MG/0.8 ML SQ SCH ×2 (09:00→22:11)
[2020-01-04] MEDS: ZINC SULFATE 220 CAPSULE PO SCH (09:00)
[2020-01-04] MEDS: FAMOTIDINE/PF 20 MG/2 ML VIAL IV SCH ×2 (09:00→22:13)
[2020-01-04] MEDS: DEXAMETHASONE SOD PHOSPHATE 4 MG/ML 1ML VIAL IVP SCH (09:00)
[2020-01-04] MEDS: ASCORBIC ACID 500 MG TAB PO SCH (09:00)
[2020-01-04] MEDS: POLYETHYLENE GLYCOL 3350 17 GM POWD.PACK PO SCH (09:00)
[2020-01-04] MEDS ORDERED: INSULIN GLARGINE 100 UNITS/ML 10 ML VIAL SQ SCH ×2 (09:00→21:00)
[2020-01-04] MEDS: INSULIN HUMULIN R 100 UNIT/ML 3ML SQ SCH ×3 (16:30→21:00)
[2020-01-04] MEDS: FLUCONAZOLE 200 MG/NS 100 ML 100 ML IV SCH (16:33)
[2020-01-04] MEDS: MIDAZOLAM 100MG-0.9% NS 100ML 100 ML IV SCH ×2 (16:38→22:11)
[2020-01-04] MEDS: FENTANYL 2500MCG+NS 250ML 250 ML IV PRN (22:13)
[2020-01-05] VITALS (30 sets, daily range): BP systolic 91–129; BP diastolic 57–80
[2020-01-05 04:35] LABS: BASOPHILS % (AUTO) 0.1 % (0.0-5.0); HEMATOCRIT 30.1 % (42-54); LYMPHOCYTES % (AUTO) 5.8 % (21.0-51.0); MEAN CORPUSCULAR HEMOGLOBIN 31.3 pg (27.0-33.0); MEAN CORPUSCULAR HGB CONC 31.6 g/dL (32.0-36.0); MONOCYTES % (AUTO) 4.6 % (3.0-13.0); NEUTROPHILS % (AUTO) 88.9 % (40.0-77.0); PLATELET COUNT (AUTO) 237 K/uL (130-400); RED BLOOD CELL COUNT(AUTO) 3.04 MIL/uL (4.50-6.20); RED CELL DISTRIBUTION WIDTH 14.9 % (11.0-15.5); WHITE BLOOD COUNT (AUTO) 12.2 K/uL (4.8-10.8)
[2020-01-05 05:14] LABS: ALBUMIN 1.2 g/dL (3.5-5.0); BILIRUBIN,TOTAL 0.4 mg/dL (0.2-1.0); CREATININE 0.4 mg/dL (0.5-1.5); POTASSIUM 3.8 mmol/L (3.5-5.1); TOTAL PROTEIN, SERUM 4.8 g/dL (6.0-8.3)
[2020-01-05] MEDS: INSULIN GLARGINE 100 UNITS/ML 10 ML VIAL SQ SCH (05:43)
[2020-01-05] MEDS: INSULIN HUMULIN R 100 UNIT/ML 3ML SQ SCH ×3 (05:46→07:30)
[2020-01-05] MEDS: VANCOMYCIN 1GM+NS 250ML 250 ML IV SCH (05:54)
[2020-01-05] MEDS: NOREPINEPHRINE 4MG/NS 250ML 250 ML IV SCH (06:46)
[2020-01-05] MEDS: POLYETHYLENE GLYCOL 3350 17 GM POWD.PACK PO SCH (09:00)
[2020-01-05] MEDS: DOCUSATE NA 100MG/10ML UDCUP PO SCH (09:00)
[2020-01-05] MEDS: ASCORBIC ACID 500 MG TAB PO SCH (09:00)
[2020-01-05] MEDS: ZINC SULFATE 220 CAPSULE PO SCH (09:00)
[2020-01-05 09:49] LABS: ABG BASE EXCESS 8.8 mmol/L (-2.0-3.0); ABG HCO3 33.9 mmol/L (21.0-28.0); ABG OXYGEN SATURATION 95.6 % (95.0-99.0); ABG PCO2 48 mmHg (35-48)
[2020-01-05] MEDS: FAMOTIDINE/PF 20 MG/2 ML VIAL IV SCH (10:42)
[2020-01-05] MEDS: DEXAMETHASONE SOD PHOSPHATE 4 MG/ML 1ML VIAL IVP SCH (10:43)
[2020-01-05] MEDS: ENOXAPARIN SODIUM 80 MG/0.8 ML SQ SCH (10:44)
[2020-01-05] MEDS ORDERED: DEXTROSE 50%-WATER 50 ML DISP.SYRIN IV ONE (11:59)
--- NOTE | 2020-01-05 15:13 | NUR ---
NURSE SPOKE WITH FAMILY AND ALL SIBLINGS AND CONFIRMED THEY WANT TO WITHDRAW CARE FROM PATIENT. OLDEST FAMILY AT BEDSIDE. OFFICAL TIME OF IS 1414.
[2020-01-05] MEDS ORDERED: INSULIN GLARGINE 100 UNITS/ML 10 ML VIAL SQ SCH (21:00)
== END 2020-01-05 14:14 | disposition expired | DRG 207 ==
LOC: EDH 21:53 → EDBD 21:53 → EDHIP 21:54 → 2DH 12-13 00:04 → 2CH 12-22 07:53
PROVIDERS: ADMIT Hospitalist; ATTEND Family Medicine
PROC: 5A1955Z Respiratory Ventilation, Greater than 96 Consecutive Hours (ICD-10-PCS; principal; 2019-12-22)
PROC: 0BH17EZ Insertion of Endotracheal Airway into Trachea, Via Natural or Artificial Opening (ICD-10-PCS; 2019-12-22)
PROC: XW13325 Transfusion of Convalescent Plasma (Nonautologous) into Peripheral Vein, Percutaneous Approach, New Technology Group 5 (ICD-10-PCS; 2020-01-05)
PROC: XW033E5 Introduction of Remdesivir Anti-infective into Peripheral Vein, Percutaneous Approach, New Technology Group 5 (ICD-10-PCS; 2020-01-05)
DX: U07.1 COVID-19 (principal); J12.89 Other viral pneumonia; E11.10 Type 2 diabetes mellitus with ketoacidosis without coma; A41.9 Sepsis, unspecified organism; J96.01 Acute respiratory failure with hypoxia; R65.21 Severe sepsis with septic shock; N17.9 Acute kidney failure, unspecified; N39.0 Urinary tract infection, site not specified; G93.40 Encephalopathy, unspecified; J90 Pleural effusion, not elsewhere classified; J93.9 Pneumothorax, unspecified; E87.5 Hyperkalemia; E86.0 Dehydration; E87.6 Hypokalemia; E83.51 Hypocalcemia; D69.6 Thrombocytopenia, unspecified; K58.9 Irritable bowel syndrome, unspecified; Z66 Do not resuscitate; D64.9 Anemia, unspecified; E66.9 Obesity, unspecified; E11.51 Type 2 diabetes mellitus with diabetic peripheral angiopathy without gangrene; I10 Essential (primary) hypertension; I48.91 Unspecified atrial fibrillation; J98.2 Interstitial emphysema; T38.0X5A Adverse effect of glucocorticoids and synthetic analogues, initial encounter; Y92.89 Other specified places as the place of occurrence of the external cause; Z68.22 Body mass index [BMI] 22.0-22.9, adult; Z88.0 Allergy status to penicillin; Z74.01 Bed confinement status; Z79.01 Long term (current) use of anticoagulants; Z79.4 Long term (current) use of insulin
CPT/HCPCS: 0099U; 31500; 36415; 36600; 71045; 71250; 74018; 80048; 80053; 80076; 80202; 81001; 82435; 82728; 82803; 82947; 82948; 83036; 83605; 83615; 83735; 83880; 84100; 84132; 84145; 84295; 85018; 85025; 85378; 86140; 86850; 86900; 86901; 86927; 87040; 87071; 87088; 87205; 93306; 94002; 94003; 94760; A4344; A4606; G0378; J1100; J1450; J1650; J1815; J2185; J2405; J2704; J2920; J2930; J3010; J3370; J3480; J3490; J7030; J7040; J7042; J7050; J7070; P9017; U0003